=== PATIENT | female | born 1940 | race Caucasian/White ===

== ENCOUNTER → 2016-07-22 | Outpatient (CLI) | payer MEDICARE, MEDICAID ==
[~2016-07-22] MED LIST: AC500T PO; ACHD5005 PO; ASP325TEC PO; ASP81TEC PO; CLPD75T PO; DCS100C PO; ESCT10T PO; ESOM20CA; EZET10TA5 PO; FERR-57 PO; FLC1T PO; GFN600TCR PO; HCA25SU PR; HCTZ12.5T; IBUP200T48 PO; KETO15CR TP; LISI1TAB10 PO; LORA10TA7 PO; LSNP20T PO; MECL25TA56 PO; METO25TA PO; MOM10U; MTC5T PO; NAPR220T66 PO; OMEG1CAP51 PO; PGLT30T PO; POLY17PO23 PO; QTP25T; RNT150T PO; SIME80TA6 PO; SIMETHICONE PO; SIMV40TA4 PO; SMT80CT PO; TPR25T PO; TRZS2T PO; WHEA1POW PO; ZPR20C PO; [UNRECOGNIZED DRUG - CODE] PO
--- NOTE | 2016-07-25 13:16 | Diagnostic Imaging Report ---
Bilateral screening mammogram. The current study was also evaluated with a Computer Aided Detection (CAD) system. INDICATION: Screening. No current complaints stated on the questionnaire. COMPARISON: 07/14/15. FINDINGS: The breasts are composed of scattered fibroglandular densities. There are scattered benign-appearing calcifications. Allowing for technique and positional differences, no suspicious change is seen. IMPRESSION: No significant change. ACR BI-RADS Category 2: Benign findings. Result letter will be mailed to the patient. Note: At least 10% of breast cancer is not imaged by mammography. Dictated by: Dictated on workstation # [id number]
== END ==
LOC: RAD 09:55
PROVIDERS: ATTEND Internal Medicine
DX: Z12.31 Encounter for screening mammogram for malignant neoplasm of breast (principal)
CPT/HCPCS: 77067

== ENCOUNTER → 2017-07-11 | Outpatient (CLI) | payer MEDICARE, MEDICAID ==
--- NOTE | 2017-07-11 12:09 | Diagnostic Imaging Report ---
INDICATION: Routine screening. Comparison is made with prior exam from 07/22/2016 and 07/14/2015. The current study was also evaluated with a Computer Aided Detection (CAD) system. FINDINGS: Mild parenchymal density is stable. No dominant mass or malignant-appearing microcalcifications are seen. There is a tiny well-defined nodule in the far posterior left breast on the MLO view, most consistent with an intramammary lymph node. Benign-appearing calcifications are noted in both breasts. The axillae are unremarkable. IMPRESSION: No mammographic features suspicious for malignancy are identified. ACR BI-RADS Category 2: Benign findings. Result letter will be mailed to the patient. Note: At least 10% of breast cancer is not imaged by mammography. Dictated by: Dictated on workstation # [id number]
== END ==
LOC: RAD 10:28
PROVIDERS: ATTEND Nurse Practitioner
DX: Z12.31 Encounter for screening mammogram for malignant neoplasm of breast (principal)
CPT/HCPCS: 77067

== ENCOUNTER → 2018-07-12 | Outpatient (CLI) | payer MEDICARE, MEDICAID ==
--- NOTE | 2018-07-12 21:36 | Diagnostic Imaging Report ---
INDICATION: Routine screening. Comparison is made with prior mammogram from 07/11/2017 and 07/22/2016. 2-D and 3-D bilateral screening mammography was performed with CAD. The current study was also evaluated with a Computer Aided Detection (CAD) system. FINDINGS: Scattered fibroglandular densities are identified bilaterally. There are benign calcifications within both breasts, stable. No mass or malignant-appearing microcalcifications are seen. The axillae are unremarkable. IMPRESSION: No mammographic features suspicious for malignancy are identified. ACR BI-RADS Category 2: Benign findings. Result letter will be mailed to the patient. Note: At least 10% of breast cancer is not imaged by mammography. Dictated by: Dictated on workstation # [id number]
== END ==
LOC: RAD 10:10
PROVIDERS: ATTEND Internal Medicine
DX: Z12.31 Encounter for screening mammogram for malignant neoplasm of breast (principal)
CPT/HCPCS: 77067

== ENCOUNTER 2018-07-28 06:50 | Emergency (ER) | payer MEDICARE, MEDICAID ==
[~2018-07-28] VITALS: Ht 165.1 cm; Wt 104.3 kg
--- NOTE | 2018-07-28 07:38 | ED Fall/Injury ---
General Chief Complaint: Trauma-Non Activation Stated Complaint: FALL Nursing Triage Note: Pt to ED via EMS from [facility], [place]. Pt reports having diarrhea and nausea this morning. Pt reports getting off the toilet and falling attempting to get into the shower. Pt reports falling face first into the shower. Pt has bilateral knee bruising and a hematoma to the L eye. Pt c/o knee pain. Pt denies any nausea at this time. Source: patient, EMS Exam Limitations: no limitations History of Present Illness Date Seen by Provider: Jul 28, 2018 Time Seen by Provider: 07:32 Initial Comments 77-year-old white female presents after she inadvertently fell in shower this morning. The patient had preceding nausea and vomiting. She denied associated syncope. She had no lateralizing or localizing neurologic complaints. Patient denied hematemesis or black or tarry stools. Patient has had no associated fever or chill. The patient's nausea vomiting and diarrhea have spontaneously resolved after presentation to the emergency department. When the patient fell the shower she struck her face and both knees. She denied trauma to the chest abdomen or pelvis. Patient is also complaining of nonradiating neck pain. Patient has had bilateral knee replacements. Allergies and Home Medications Allergies Coded Allergies: Codeine (Verified Allergy, Unknown, 04/14/08) Morphine (Verified Allergy, Unknown, 04/14/08) Sulfa (Sulfonamide Antibiotics) (Verified Allergy, Unknown, 04/14/08) Home Medications Acetaminophen 500 Mg Tablet, 1,000 MG PO QID PRN, (Reported) PRN PAIN TAKES 2 TABS EVERY 6 HOURS PRN Aspirin 81 Mg Tabec, 81 MG PO DAILY, (Reported) Docusate Sodium 100 Mg Capsule, 100-200 MG PO BID, (Reported) 1 OR 2 CAPS TWICE DAILY Escitalopram Oxalate 10 Mg Tablet, 10 MG PO DAILY, (Reported) Ezetimibe 10 Mg Tablet, 10 MG PO HS, (Reported) Ferrous Sulfate 325 Mg Tablet, 325 MG PO DAILY, (Reported) Folic Acid 1 Mg Tab, 2 MG PO DAILY, (Reported) TAKES 2 OF THE 1MG TABLETS DAILY Guaifenesin 600 Mg Tab, 600 MG PO BID PRN, (Reported) PRN COUGH AND/ OR CONGESTION Hctz/Lisinopril 1 Tab Tablet, 20-25 MG PO DAILY, (Reported) Hydrocortisone Acetate 1 Ea Supp, 25 MG CA Q8H PRN, (Reported) PRN RECTAL BLEEDING FROM HEMORRHOIDS Ibuprofen 200 Mg Tablet, 800 MG PO Q8H PRN for PAIN, (Reported) Loratadine 10 Mg Tablet, 10 MG PO DAILY, (Reported) Metoprolol Succinate 25 Mg Tab.sr.24h, 25 MG PO DAILY, (Reported) [place]-3 Fatty Acids/Fish Oil 1 Each Capsule, 3,000 MG PO DAILY, (Reported) TAKES 3 CAPS ONCE DAILY Polyethylene Glycol 17 Gm Pack, 17 GM PO DAILY PRN, (Reported) PRN CONSTIPATION Ranitidine Hcl 150 Mg Tablet, 150 MG PO BID, (Reported) Simethicone 80 Mg Tab.chew, 40 MG PO BID, (Reported) Simvastatin 40 Mg Tablet, 40 MG PO DAILY, (Reported) Topiramate 25 Mg Tab, 25 MG PO BID, (Reported) Patient Home Medication List Home Medication List Reviewed: Yes Review of Systems Review of Systems Constitutional: No chills, No fever; malaise, weakness Eyes: Denies Blurred Vision Ears, Nose, Mouth, Throat: denies ear pain Respiratory: No cough Cardiovascular: No chest pain, No palpitations Gastrointestinal: No abdominal pain; diarrhea, nausea, vomiting Genitourinary: No dysuria, No frequency : No Musculoskeletal: see HPI Skin: other (ecchymosis to the face and both knees.) Psychiatric/Neurological: No Symptoms Reported Past Tjlqaiu-Ojbsov-Jenams Hx Past Med/Social Hx: Reviewed Nursing Past Med/Soc Hx Patient Social History Alcohol Use: Denies Use Recreational Drug Use: No 2nd Hand Smoke Exposure: No Recent Foreign Travel: No Contact w/Someone Who Travel: No Recent Infectious Disease Expo: No Recent Hopitalizations: Yes (4 YEARS AGO FOR BLEEDING HEMORRHOIDS) Physical Abuse: No Sexual Abuse: No Immunizations Up To Date Date of Pneumonia Vaccine: Sep 17, 2014 Past Medical History Surgeries: Yes (HYSTERECTOMY, T&A, APPENDECTOMY, GALL BLADDER, KNEE REPLACEMENT X2) Respiratory: No 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 SORIANO, WILL SEE AGAIN IN 6MO) Physical Exam Vital Signs Vital Signs - First Documented 07/28/18 06:50 Temp 97.9 Pulse 71 Resp 17 B/P (MAP) 138/109 (119) Pulse Ox 95 O2 Delivery Room Air Capillary Refill : Less Than 3 Seconds Height, Weight, BMI Height: 5'5.00" Weight: 230lbs. oz. 104.936370bc; BMI Method:Stated General Appearance: WD/WN, obese HEENT: other (there is periorbital bruising on examination the patient's face. There is no active epistaxis. There is no oral injury noted. 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, no motor/sensory deficits, alert, normal mood/affect, oriented x 3 Skin: warm/dry, ecchymosis (over the face and knees.) Progress/Results/Core Measures Results/Orders Lab Results Laboratory Tests Test 07/28/18 07:51 07/28/18 09:20 Range/Units White Blood Count 8.4 4.3-11.0 10^3/uL Red Blood Count 3.87 L 4.35-5.85 10^6/uL Hemoglobin 12.2 11.5-16.0 G/DL Hematocrit 39 35-52 % Mean Corpuscular Volume 101 H 80-99 FL Mean Corpuscular Hemoglobin 32 25-34 PG Mean Corpuscular Hemoglobin Concent 31 L 32-36 G/DL Red Cell Distribution Width 12.5 10.0-14.5 % Platelet Count 142 130-400 10^3/uL Mean Platelet Volume 10.8 H 7.4-10.4 FL Neutrophils (%) (Auto) 91 H 42-75 % Lymphocytes (%) (Auto) 4 L 12-44 % Monocytes (%) (Auto) 5 0-12 % Eosinophils (%) (Auto) 0 0-10 % Basophils (%) (Auto) 0 0-10 % Neutrophils # (Auto) 7.7 1.8-7.8 X 10^3 Lymphocytes # (Auto) 0.4 L 1.0-4.0 X 10^3 Monocytes # (Auto) 0.4 0.0-1.0 X 10^3 Eosinophils # (Auto) 0.0 0.0-0.3 10^3/uL Basophils # (Auto) 0.0 0.0-0.1 10^3/uL Neutrophils % (Manual) 92 % Lymphocytes % (Manual) 5 % Monocytes % (Manual) 2 % Eosinophils % (Manual) 1 % Macrocytosis SLIGHT Blood Morphology Comment NORMAL Sodium Level 141 135-145 MMOL/L Potassium Level 4.6 3.6-5.0 MMOL/L Chloride Level 110 H 98-107 MMOL/L Carbon Dioxide Level 21 21-32 MMOL/L Anion Gap 10 5-14 MMOL/L Blood Urea Nitrogen 32 H 7-18 MG/DL Creatinine 1.11 0.60-1.30 MG/DL Estimat Glomerular Filtration Rate 48 BUN/Creatinine Ratio 29 Glucose Level 169 H 70-105 MG/DL Calcium Level 8.9 8.5-10.1 MG/DL Corrected Calcium 9.1 8.5-10.1 MG/DL Total Bilirubin 0.5 0.1-1.0 MG/DL Aspartate Amino Transf (AST/SGOT) 19 5-34 U/L Alanine Aminotransferase (ALT/SGPT) 11 0-55 U/L Alkaline Phosphatase 70 40-136 U/L Total Protein 6.6 6.4-8.2 GM/DL Albumin 3.7 3.2-4.5 GM/DL Urine Color YELLOW Urine Clarity CLEAR Urine pH 6 5-9 Urine Specific [place] 1.015 L 1.016-1.022 Urine Protein NEGATIVE NEGATIVE Urine Glucose (UA) NEGATIVE NEGATIVE Urine Ketones NEGATIVE NEGATIVE Urine Nitrite NEGATIVE NEGATIVE Urine Bilirubin NEGATIVE NEGATIVE Urine Urobilinogen NORMAL NORMAL MG/DL Urine Leukocyte Esterase NEGATIVE NEGATIVE Urine RBC (Auto) 1+ H NEGATIVE Urine RBC 0-2 /HPF Urine WBC NONE /HPF Urine Crystals NONE /LPF Urine Bacteria NEGATIVE /HPF Urine Casts NONE /LPF Urine Mucus NEGATIVE /LPF Urine Culture Indicated NO My Orders Orders - SUNITA COOK MD Cbc With Automated Diff (07/28/18 07:02) Comprehensive Metabolic Panel (07/28/18 07:02) Urinalysis (07/28/18 07:02) Urine Culture (07/28/18 07:02) Protime With Inr (07/28/18 07:02) Partial Thromboplastin Time (07/28/18 07:02) Chest 1 View, Ap/Pa Only (07/28/18 07:02) Saline Lock/Iv-Start (07/28/18 07:02) Ekg Tracing (07/28/18 07:02) Vital Signs Adult Sepsis Patie Q15M (07/28/18 07:02) O2 (07/28/18 07:02) Knee, Bilateral, W/[place] 4v. (07/28/18 07:30) Ct Head/Face/Cervical Wo (07/28/18 07:52) Manual Differential (07/28/18 07:51) Dipht,Pertuss(Acell),Tet Adult (Boostrix (07/28/18 09:45) Vital Signs/I&O 07/28/18 06:50 Temp 97.9 Pulse 71 Resp 17 B/P (MAP) 138/109 (119) Pulse Ox 95 O2 Delivery Room Air Blood Pressure Mean: 119 Progress Progress Note : Time: 09:[address] study demonstrated a nasal fracture. 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 Degenerative changes were noted in the cervical spine but no evidence of fracture or dislocation. Radiographically evaluation of the chest demonstrated atelectasis but no evidence of acute infiltrate. X-ray of both knees failed to demonstrate evidence of fracture or dislocation. I discussed findings with the patient. I gave her a referral for ENT. She did not want any medicines other than Tylenol for her pain. I will last the assisted personnel to watch patient closely to avoid a further fall. I discussed the patient's findings with her family who is in agreement to allow the patient to return to her independent living at [facility]. We walked the patient in the emergency department employee in her walker that she uses. She was able to weight-bear without difficulty. Departure Impression Primary Impression: Fall Qualified Codes: W19.XXXA - Unspecified fall, initial encounter Additional Impressions: Nasal fracture Qualified Codes: S02.2XXA - Fracture of nasal bones, initial encounter for closed fracture Closed head injury Qualified Codes: S09.90XA - Unspecified injury of head, initial encounter Contusion of knee, left Qualified Codes: S80.02XA - Contusion of left knee, initial encounter Contusion of knee, right Qualified Codes: S80.01XA - Contusion of right knee, initial encounter Disposition: HOME, SELF-CARE Condition: Improved Departure-Patient Inst. Decision time for Depature: 09:43 Referrals: ROGELIO BRADLEY MD, JOHN D MD (PCP/Family) Primary Care Physician Patient Instructions: Nose Fracture (DC) Add. Discharge Instructions: Follow up with ENT for nasal fracture. Tylenol for pain. Have staff watch closely to avoid another fall. All discharge instructions reviewed with patient and/or family. Voiced understanding. SUNITA COOK MD Jul 28, 2018 07:38
[2018-07-28 08:04] LABS: BASOPHILS % (AUTO) 0 % (0-10); EOSINOPHILS % (AUTO) 0 % (0-10); HEMATOCRIT 39 % (35-52); HEMOGLOBIN 12.2 G/DL (11.5-16.0); LYMPHOCYTES # (AUTO) 0.4 X 10^3 (1.0-4.0); LYMPHOCYTES % (AUTO) 4 % (12-44); MEAN CORPUSCULAR HEMOGLOBIN 32 PG (25-34); MEAN CORPUSCULAR HGB CONC 31 G/DL (32-36); MEAN CORPUSCULAR VOLUME 101 FL (80-99); MEAN PLATELET VOLUME 10.8 FL (7.4-10.4); MONOCYTES # (AUTO) 0.4 X 10^3 (0.0-1.0); MONOCYTES % (AUTO) 5 % (0-12); NEUTROPHILS # (AUTO) 7.7 X 10^3 (1.8-7.8); NEUTROPHILS % (AUTO) 91 % (42-75); PLATELET COUNT 142 10^3/uL (130-400); RED CELL DISTRIBUTION WIDTH 12.5 % (10.0-14.5); WHITE BLOOD COUNT 8.4 10^3/uL (4.3-11.0)
[2018-07-28 08:21] LABS: ALBUMIN 3.7 GM/DL (3.2-4.5); BILIRUBIN,TOTAL 0.5 MG/DL (0.1-1.0); CALCIUM 8.9 MG/DL (8.5-10.1); CREATININE SERUM 1.11 MG/DL (0.60-1.30); POTASSIUM 4.6 MMOL/L (3.6-5.0); TOTAL PROTEIN 6.6 GM/DL (6.4-8.2)
--- NOTE | 2018-07-28 08:53 | Diagnostic Imaging Report ---
Indication: Fall. Time of exam: 8:22 AM Multiple views of the bilateral knees were obtained. Postop changes of bilateral knee arthroplasties are noted. Prosthetic elements appear to be in good position. No fracture or loosening is seen. There is no joint effusion. Impression: No acute abnormality is detected. Dictated by: Dictated on workstation # [id number]
--- NOTE | 2018-07-28 08:53 | Diagnostic Imaging Report ---
INDICATION: Fall. TIME OF EXAM: 08:22 a.m Correlation is made with prior study from 12/31/2014. Heart size is stable. There are some subsegmental atelectasis or scarring in both bases. Mid and upper lung roldan are clear. No effusion or pneumothorax is seen. IMPRESSION: Mild bibasilar subsegmental atelectasis or scarring. Dictated by: Dictated on workstation # [id number]
--- NOTE | 2018-07-28 09:02 | Diagnostic Imaging Report ---
PROCEDURE: CT head, face, and cervical spine without contrast. TECHNIQUE: Multiple contiguous axial images were obtained through the head, neck, and facial bones without the use of intravenous contrast. Sagittal and coronal reformations through the cervical spine and facial bones were also performed. INDICATION: Injury. Head CT compared with prior 04/14/2008. CT HEAD: Mild cerebral cortical atrophy and old ischemic sequelae in the left basal ganglia chronic. No acute intracranial abnormality. There is no hemorrhage or edema. No calvarial fracture deformity. CT FACIAL BONES: Right frontal and preseptal orbital and facial soft tissue swelling is present. There is suspicion for fractures of the right greater than left nasal bones with mild leftward deviation of the distal fragments with some overlying soft tissue swelling. This reflects a change when compared to prior CT head. Correlate for nasal pain. Septum appeared intact with some mild rightward spurring chronic. The gonzalez of the maxillary sinuses are intact. There is no maxillary air-fluid level. Anterior and posterior gonzalez of frontal sinuses are intact. There is no mastoid effusion. The external auditory canals and middle ear cavities clear. Hard palate and pterygoid plates intact, some chronic sclerotic changes to the right mandibular body and ramus present. No mandibular fracture or bony dislocation of the TMJs. CT CERVICAL SPINE: There is a straightening of lordosis without listhesis. There are degenerative changes to the discs, endplates, facets and uncovertebral joints throughout the cervical spine. Some ossification of the spinal laminar ligament at the C3-C4 level. There was no evidence for fracture. No paravertebral hemorrhage. IMPRESSION: CT HEAD: Old left-sided stroke, no intracranial hemorrhage or calvarial fracture. CT FACIAL BONES: Probable bilateral nasal bone fractures with leftward deviation of the distal components, intact septum. No hemo-sinus. No other facial fracture suspected. Preseptal soft tissue swelling with no retrobulbar hematoma. CT CERVICAL SPINE: Degenerative changes without fracture or dislocation. Dictated by: Dictated on workstation # [id number]
[2018-07-28 09:16] LABS: EOSINOPHILS % (MANUAL) 1 %; LYMPHOCYTES % (MANUAL) 5 %; MONOCYTES % (MANUAL) 2 %; NEUTROPHILS % (MANUAL) 92 %; RBC MORPH NORMAL
[2018-07-28 09:33] LABS: BILIRUBIN,URINE NEGATIVE (NEGATIVE); CLARITY,URINE CLEAR; COLOR,URINE YELLOW; GLUCOSE, URINE (UA) NEGATIVE (NEGATIVE); KETONES,URINE NEGATIVE (NEGATIVE); LEUKOCYTE ESTERASE ,URINE NEGATIVE (NEGATIVE); NITRITE,URINE NEGATIVE (NEGATIVE); PH,URINE 6 (5-9); PROTEIN,URINE NEGATIVE (NEGATIVE); UROBILINOGEN,URINE NORMAL (NORMAL)
[2018-07-28 09:40] LABS: BACTERIA,URINE NEGATIVE /HPF; RBC,URINE 0-2 /HPF
[2018-07-28] MEDS ORDERED: TETANUS,DIPTH,PERTUSS P/F (BOOSTRIX) 0.5 ML VIAL IM ONE (09:45)
[2018-07-28 11:04] VITALS: BP 120/68
== END 2018-07-28 11:03 | disposition home or self-care (01) ==
LOC: EDUNIT# 06:50 → ER 06:52
DX: S09.90XA Unspecified injury of head, initial encounter (principal); S02.2XXA Fracture of nasal bones, initial encounter for closed fracture; S80.02XA Contusion of left knee, initial encounter; S80.01XA Contusion of right knee, initial encounter; Z88.5 Allergy status to narcotic agent; Z88.2 Allergy status to sulfonamides; Z79.82 Long term (current) use of aspirin; Z79.51 Long term (current) use of inhaled steroids; Z87.19 Personal history of other diseases of the digestive system; Z90.710 Acquired absence of both cervix and uterus; Z90.49 Acquired absence of other specified parts of digestive tract; W18.30XA Fall on same level, unspecified, initial encounter; Y92.002 Bathroom of unspecified non-institutional (private) residence as the place of occurrence of the external cause
CPT/HCPCS: 36415; 70450; 70486; 71045; 72125; 80053; 81000; 85007; 85027; 87088; 90715; 93005

== ENCOUNTER → 2018-07-31 | Outpatient (CLI) | payer MEDICARE, MEDICAID | LOC: WOUNDCARE 09:23 | PROVIDERS: ATTEND Nurse Practitioner | DX: L89.152 Pressure ulcer of sacral region, stage 2 (principal); E66.01 Morbid (severe) obesity due to excess calories | CPT/HCPCS: 99213 ==

== ENCOUNTER → 2018-08-07 | Outpatient (CLI) | payer MEDICARE, MEDICAID | LOC: WOUNDCARE 09:39 | PROVIDERS: ATTEND Nurse Practitioner | DX: L89.152 Pressure ulcer of sacral region, stage 2 (principal); E66.01 Morbid (severe) obesity due to excess calories | CPT/HCPCS: 11042; 87070; 87075; 87205 ==

== ENCOUNTER → 2018-08-14 | Outpatient (CLI) | payer MEDICARE, MEDICAID | LOC: WOUNDCARE 09:13 | PROVIDERS: ATTEND Nurse Practitioner | DX: L89.152 Pressure ulcer of sacral region, stage 2 (principal); E66.01 Morbid (severe) obesity due to excess calories | CPT/HCPCS: 99212 ==

== ENCOUNTER 2018-08-17 07:27 | Emergency (ER) | payer MEDICARE, MEDICAID ==
[~2018-08-17] VITALS: Ht 167.6 cm; Wt 86.2 kg
--- NOTE | 2018-08-17 07:41 | NUR ---
SEE [facility] MED[facility] SHEETS FOR CURRENT MEDS
--- NOTE | 2018-08-17 07:58 | ED Fall/Injury ---
General Chief Complaint: Trauma-Non Activation Stated Complaint: FALL Source: patient, EMS Exam Limitations: no limitations History of Present Illness Date Seen by Provider: Aug 17, 2018 Time Seen by Provider: 07:37 Initial Comments 77-year-old white female presents [facility] striking her left occiput. There was no loss of consciousness. Patient denies neck pain. She denies paresthesias or weakness in the extremities. The patient has been falling frequently. 3 weeks ago she fell striking her face and sustained a nasal fracture. Patient is not on blood thinners. She denies chest pain, palpitations, or syncope. The patient stated that she slipped off the bed as she was reaching forward for her walker which caused her to hit her left occipital area. Patient has had frequent falls in the last several months. Allergies and Home Medications Allergies Coded Allergies: Codeine (Verified Allergy, Unknown, 04/14/08) Morphine (Verified Allergy, Unknown, 04/14/08) Sulfa (Sulfonamide Antibiotics) (Verified Allergy, Unknown, 04/14/08) Home Medications Acetaminophen 500 Mg Tablet, 1,000 MG PO QID PRN, (Reported) PRN PAIN TAKES 2 TABS EVERY 6 HOURS PRN Aspirin 81 Mg Tabec, 81 MG PO DAILY, (Reported) Docusate Sodium 100 Mg Capsule, 100-200 MG PO BID, (Reported) 1 OR 2 CAPS TWICE DAILY Escitalopram Oxalate 10 Mg Tablet, 10 MG PO DAILY, (Reported) Ezetimibe 10 Mg Tablet, 10 MG PO HS, (Reported) Ferrous Sulfate 325 Mg Tablet, 325 MG PO DAILY, (Reported) Folic Acid 1 Mg Tab, 2 MG PO DAILY, (Reported) TAKES 2 OF THE 1MG TABLETS DAILY Guaifenesin 600 Mg Tab, 600 MG PO BID PRN, (Reported) PRN COUGH AND/ OR CONGESTION Hctz/Lisinopril 1 Tab Tablet, 20-25 MG PO DAILY, (Reported) Hydrocortisone Acetate 1 Ea Supp, 25 MG CA Q8H PRN, (Reported) PRN RECTAL BLEEDING FROM HEMORRHOIDS Ibuprofen 200 Mg Tablet, 800 MG PO Q8H PRN for PAIN, (Reported) Loratadine 10 Mg Tablet, 10 MG PO DAILY, (Reported) Metoprolol Succinate 25 Mg Tab.sr.24h, 25 MG PO DAILY, (Reported) [place]-3 Fatty Acids/Fish Oil 1 Each Capsule, 3,000 MG PO DAILY, (Reported) TAKES 3 CAPS ONCE DAILY Polyethylene Glycol 17 Gm Pack, 17 GM PO DAILY PRN, (Reported) PRN CONSTIPATION Ranitidine Hcl 150 Mg Tablet, 150 MG PO BID, (Reported) Simethicone 80 Mg Tab.chew, 40 MG PO BID, (Reported) Simvastatin 40 Mg Tablet, 40 MG PO DAILY, (Reported) Topiramate 25 Mg Tab, 25 MG PO BID, (Reported) Patient Home Medication List Home Medication List Reviewed: Yes Review of Systems Review of Systems Constitutional: No chills, No fever Eyes: Denies Blurred Vision Ears, Nose, Mouth, Throat: denies ear pain Respiratory: No cough Cardiovascular: No chest pain Gastrointestinal: No abdominal pain, No nausea, No vomiting Genitourinary: no symptoms reported : No Musculoskeletal: no symptoms reported Skin: other (patient sustained an abrasion to the left forearm when she fell this morning. The prison staff cleaned and Steri-Stripped and a area over the dorsum of the midportion of the left forearm. 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 SORIANO, WILL SEE AGAIN IN 6MO) Physical Exam Vital Signs Vital Signs - First Documented 08/17/18 07:27 Temp 97.8 Pulse 66 Resp 18 B/P (MAP) 137/105 (116) Pulse Ox 92 O2 Delivery Room Air O2 Flow Rate 2.00 Capillary Refill : Height, Weight, BMI Height: 5'5.00" Weight: 230lbs. oz. 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 The patient remained awake and alert without any complaints in the emergency department. I reassured the patient. The patient was discharged to the prison with recommendations that she become a fall risk that they watch most closely. I asked that she follow up with her primary care physician on Monday. She was invited to return to the emergency department she had any further problems or questions. Departure Impression Primary Impression: Fall Qualified Codes: W19.XXXA - Unspecified fall, initial encounter Additional Impression: CHI (closed head injury) Qualified Codes: S09.90XA - Unspecified injury of head, initial encounter Disposition: 01 HOME, SELF-CARE Condition: Unchanged Departure-Patient Inst. Decision time for Depature: 09:09 Referrals: GILLIAN CYR MD (PCP/Family) Primary Care Physician Patient Instructions: Minor Head Injury (DC) Add. Discharge Instructions: Return if any problems or questions. Ensure extreme fall precautions are taken. Follow-up with Dr. Cyr. All discharge instructions reviewed with patient and/or family. Voiced understanding. SUNITA COOK MD Aug 17, 2018 07:58
--- NOTE | 2018-08-17 08:01 | Diagnostic Imaging Report ---
PROCEDURE: CT head without contrast. TECHNIQUE: Multiple contiguous axial images were obtained through the brain without the use of intravenous contrast. INDICATION: Fall. History of previous fall 3 weeks ago with nasal bone fracture. Comparison with 07/28/2018. FINDINGS: Diffuse cortical atrophy is again noted. No evidence of intracranial hemorrhage. No mass effect. No extra-axial fluid collection. No evidence of calvarial fracture. Mastoid air cells and paranasal sinuses are well-aerated. IMPRESSION: No acute changes when compared with previous exam. Dictated by: Dictated on workstation # [id number]
[2018-08-17 10:41] VITALS: BP 139/96
--- OUTSIDE RECORDS SUMMARY | 2018-08-19 08:26 | XMS REPORT | Continuity of Care Document ---
Author Author [facility] Organization [facility] Address Unknown Phone Unavailable Allergies Active Description Code Type Severity Reaction Onset Reported/Identified Relationship to Patient Clinical Status Yes codeine [id number] Drug Allergy Unknown N/A 04/14/2008 Yes morphine [id number] Drug Allergy Unknown N/A 04/14/2008 Yes Sulfa (Sulfonamide Antibiotics) [id number] Drug Allergy Unknown N/A 2007 Yes codeine Drug Allergy N/A N/A 04/15/2011 Yes morphine Drug Allergy N/A N/A 04/15/2011 Yes codeine Drug Allergy 04/15/2011 Yes morphine Drug Allergy 04/15/2011 Yes Sulfa (Sulfonamide Antibiotics) Drug Allergy N/A N/A 09/05/2013 Medications There is no data. Problems Date Dx Coded Attending Type Code Diagnosis Diagnosed By 01/30/2008 296.30 MAJOR DEPRESSIVE AFFECTIVE DISORDER RECURRENT EPISODE UNSPECIFIED DEGREE 01/30/2008 316 PF PSYCHIC FACTORS MED COND 01/30/2008 296.30 MAJOR DEPRESSIVE AFFECTIVE DISORDER RECURRENT EPISODE UNSPECIFIED DEGREE 01/30/2008 316 PF PSYCHIC FACTORS MED COND 01/30/2008 296.30 MAJOR DEPRESSIVE AFFECTIVE DISORDER RECURRENT EPISODE UNSPECIFIED DEGREE 01/30/2008 316 PF PSYCHIC FACTORS MED COND 01/30/2008 296.30 MAJOR DEPRESSIVE AFFECTIVE DISORDER RECURRENT EPISODE UNSPECIFIED DEGREE 01/30/2008 316 PF PSYCHIC FACTORS MED COND 01/30/2008 JAMILAH BAEZ DO 296.30 MAJOR DEPRESSIVE AFFECTIVE DISORDER RECURRENT EPISODE UNSPECIFIED DEGREE 01/30/2008 JAMILAH BAEZ DO 316 PF PSYCHIC FACTORS MED COND 01/30/2008 FRANCHESKA SOLORIO APRN 296.30 MAJOR DEPRESSIVE AFFECTIVE DISORDER RECURRENT EPISODE UNSPECIFIED DEGREE 01/30/2008 FRANCHESKA SOLORIO APRN 316 PF PSYCHIC FACTORS MED COND 01/30/2008 FRANCHESKA SOLORIO APRN 296.30 MAJOR DEPRESSIVE AFFECTIVE DISORDER RECURRENT EPISODE UNSPECIFIED DEGREE 01/30/2008 FRANCHESKA SOLORIO APRN 316 PF PSYCHIC FACTORS MED COND 01/30/2008 FRANCHESKA SOLORIO APRN 296.30 MAJOR DEPRESSIVE AFFECTIVE DISORDER RECURRENT EPISODE UNSPECIFIED DEGREE 01/30/2008 FRANCHESKA SOLORIO APRN 316 PF PSYCHIC FACTORS MED COND 01/30/2008 FRANCHESKA SOLORIO APRN 296.30 MAJOR DEPRESSIVE AFFECTIVE DISORDER RECURRENT EPISODE UNSPECIFIED DEGREE 01/30/2008 FRANCHESKA SOLORIO APRN 316 PF PSYCHIC FACTORS MED COND 01/30/2008 JAMEL LONGO M 296.30 MAJOR DEPRESSIVE AFFECTIVE DISORDER RECURRENT EPISODE UNSPECIFIED DEGREE 01/30/2008 PEDRO AYALA, JAMEL M 316 PF PSYCHIC FACTORS MED COND 03/31/2008 300.00 AN ANXIETY UNSPEC 03/31/2008 995.20 UNSPECIFIED ADVERSE EFFECT OF UNSPECIFIED DRUG MEDICINAL AND BIOLOGICAL SUBSTANCE 03/31/2008 300.00 AN ANXIETY UNSPEC 03/31/2008 995.20 UNSPECIFIED ADVERSE EFFECT OF UNSPECIFIED DRUG MEDICINAL AND BIOLOGICAL SUBSTANCE 03/31/2008 300.00 AN ANXIETY UNSPEC 03/31/2008 995.20 UNSPECIFIED ADVERSE EFFECT OF UNSPECIFIED DRUG MEDICINAL AND BIOLOGICAL SUBSTANCE 03/31/2008 300.00 AN ANXIETY UNSPEC 03/31/2008 995.20 UNSPECIFIED ADVERSE EFFECT OF UNSPECIFIED DRUG MEDICINAL AND BIOLOGICAL SUBSTANCE 03/31/2008 JAMILAH BAEZ DO F 300.00 AN ANXIETY UNSPEC 03/31/2008 JAMILAH BAEZ DO F 995.20 UNSPECIFIED ADVERSE EFFECT OF UNSPECIFIED DRUG MEDICINAL AND BIOLOGICAL SUBSTANCE 03/31/2008 FRANCHESKA SOLORIO APRN 300.00 AN ANXIETY UNSPEC 03/31/2008 FRANCHESKA SOLORIO APRN 995.20 UNSPECIFIED ADVERSE EFFECT OF UNSPECIFIED DRUG MEDICINAL AND BIOLOGICAL SUBSTANCE 03/31/2008 FRANCHESKA SOLORIO APRN 300.00 AN ANXIETY UNSPEC 03/31/2008 FRANCHESKA SOLORIO APRN 995.20 UNSPECIFIED ADVERSE EFFECT OF UNSPECIFIED DRUG MEDICINAL AND BIOLOGICAL SUBSTANCE 03/31/2008 FRANCHESKA SOLORIO APRN 300.00 AN ANXIETY UNSPEC 03/31/2008 FRANCHESKA SOLORIO APRN 995.20 UNSPECIFIED ADVERSE EFFECT OF UNSPECIFIED DRUG MEDICINAL AND BIOLOGICAL SUBSTANCE 03/31/2008 FRANCHESKA SOLORIO APRN 300.00 AN ANXIETY UNSPEC 03/31/2008 FRANCHESKA SOLORIO APRN 995.20 UNSPECIFIED ADVERSE EFFECT OF UNSPECIFIED DRUG MEDICINAL AND BIOLOGICAL SUBSTANCE 03/31/2008 JAMEL LONGO 300.00 AN ANXIETY UNSPEC 03/31/2008 JAMEL LONGO 995.20 UNSPECIFIED ADVERSE EFFECT OF UNSPECIFIED DRUG MEDICINAL AND BIOLOGICAL SUBSTANCE 07/21/2008 E939.9 UNSPECIFIED PSYCHOTROPIC AGENT CAUSING ADVERSE EFFECTS IN THERAPEUTIC USE 07/21/2008 E939.9 UNSPECIFIED PSYCHOTROPIC AGENT CAUSING ADVERSE EFFECTS IN THERAPEUTIC USE 07/21/2008 E939.9 UNSPECIFIED PSYCHOTROPIC AGENT CAUSING ADVERSE EFFECTS IN THERAPEUTIC USE 07/21/2008 E939.9 UNSPECIFIED PSYCHOTROPIC AGENT CAUSING ADVERSE EFFECTS IN THERAPEUTIC USE 07/21/2008 JAMILAH BAEZ DO E939.9 UNSPECIFIED PSYCHOTROPIC AGENT CAUSING ADVERSE EFFECTS IN THERAPEUTIC USE 07/21/2008 LYNDSEY HAMPTON FRANCHESKA LOGAN E939.9 UNSPECIFIED PSYCHOTROPIC AGENT CAUSING ADVERSE EFFECTS IN THERAPEUTIC USE 07/21/2008 LYNDSEY HAMPTON FRANCHESKA LOGAN E939.9 UNSPECIFIED PSYCHOTROPIC AGENT CAUSING ADVERSE EFFECTS IN THERAPEUTIC USE 07/21/2008 SOLORIO BERTA FRANCHESKA LOGAN E939.9 UNSPECIFIED PSYCHOTROPIC AGENT CAUSING ADVERSE EFFECTS IN THERAPEUTIC USE 07/21/2008 SOLORIO [employer] LOAN COLLECTION OFFICER, FRANCHESKA LOGAN E939.9 UNSPECIFIED PSYCHOTROPIC AGENT CAUSING ADVERSE EFFECTS IN THERAPEUTIC USE 07/21/2008 JAMEL LONGO E939.9 UNSPECIFIED PSYCHOTROPIC AGENT CAUSING ADVERSE EFFECTS IN THERAPEUTIC USE 03/03/2009 NODX NO DIAGNOSIS 03/03/2009 NODX NO DIAGNOSIS 03/03/2009 NODX NO DIAGNOSIS 03/03/2009 NODX NO DIAGNOSIS 03/03/2009 JAMILAH BAEZ DO NODX NO DIAGNOSIS 03/03/2009 SOLORIO [employer]LE[employer] OFFICER, FRANCHESKA LOGAN NODX NO DIAGNOSIS 03/03/2009 LYNDSEY HAMPTON FRANCHESKA LOGAN NODX NO DIAGNOSIS 03/03/2009 SOLORIO BERTA FRANCHESKA LOGAN NODX NO DIAGNOSIS 03/03/2009 SOLORIO BERTA FRANCHESKA LOGAN NODX NO DIAGNOSIS 03/03/2009 JAMEL LONGO NODX NO DIAGNOSIS 04/23/2009 296.35 MO DEPRESSIVE RECURRENT IN PART OR UNSPECIFIED REMISSION 04/23/2009 296.35 MO DEPRESSIVE RECURRENT IN PART OR UNSPECIFIED REMISSION 04/23/2009 296.35 MO DEPRESSIVE RECURRENT IN PART OR UNSPECIFIED REMISSION 04/23/2009 296.35 MO DEPRESSIVE RECURRENT IN PART OR UNSPECIFIED REMISSION 04/23/2009 JAMILAH BAEZ DO 296.35 MO DEPRESSIVE RECURRENT IN PART OR UNSPECIFIED REMISSION 04/23/2009 SOLORIO [employer]LE[employer] OFFICER, FRANCHESKA DESMOND 296.35 MO DEPRESSIVE RECURRENT IN PART OR UNSPECIFIED REMISSION 04/23/2009 SOLORIO [employer]LECTION OFFICER, FRANCHESKA DESMOND 296.35 MO DEPRESSIVE RECURRENT IN PART OR UNSPECIFIED REMISSION 04/23/2009 SOLORIO [employer]LECTION OFFICER, FRANCHESKA DESMOND 296.35 MO DEPRESSIVE RECURRENT IN PART OR UNSPECIFIED REMISSION 04/23/2009 SOLORIO [employer]LECTION OFFICER, FRANCHESKA DESMOND 296.35 MO DEPRESSIVE RECURRENT IN PART OR UNSPECIFIED REMISSION 04/23/2009 JAMEL LONGO M 296.35 MO DEPRESSIVE RECURRENT IN PART OR UNSPECIFIED REMISSION 06/30/2009 296.32 MO DEPRESSIVE RECURRENT MODERATE 06/30/2009 296.32 MO DEPRESSIVE RECURRENT MODERATE 06/30/2009 296.32 MO DEPRESSIVE RECURRENT MODERATE 06/30/2009 296.32 MO DEPRESSIVE RECURRENT MODERATE 06/30/2009 JAMILAH BAEZ DO 296.32 MO DEPRESSIVE RECURRENT MODERATE 06/30/2009 SOLORIO [employer]LE[employer] OFFICER, FRANCHESKA DESMOND 296.32 MO DEPRESSIVE RECURRENT MODERATE 06/30/2009 SOLORIO [employer]LE[employer] OFFICER, FRANCHESKA DESMOND 296.32 MO DEPRESSIVE RECURRENT MODERATE 06/30/2009 SOLORIO [employer]LE[employer] OFFICER, FRANCHESKA DESMOND 296.32 MO DEPRESSIVE RECURRENT MODERATE 06/30/2009 SOLORIO [employer]LE[employer] OFFICER, FRANCHESKA DESMOND 296.32 MO DEPRESSIVE RECURRENT MODERATE 06/30/2009 JAMEL LONGO M 296.32 MO DEPRESSIVE RECURRENT MODERATE 09/01/2010 V58.69 LONG-TERM ( CURRENT) USE OF OTHER MEDICATIONS 09/01/2010 V58.69 LONG-TERM ( CURRENT) USE OF OTHER MEDICATIONS 09/01/2010 V58.69 LONG-TERM ( CURRENT) USE OF OTHER MEDICATIONS 09/01/2010 V58.69 LONG-TERM ( CURRENT) USE OF OTHER MEDICATIONS 09/01/2010 JAMILAH BAEZ DO V58.69 LONG-TERM (CURRENT) USE OF OTHER MEDICATIONS 09/01/2010 LYNDSEY HAMPTON FRANCHESKA DESMOND V58.69 LONG-TERM (CURRENT) USE OF OTHER MEDICATIONS 09/01/2010 FRANCHESKA SOLORIO APRN V58.69 LONG-TERM (CURRENT) USE OF OTHER MEDICATIONS 09/01/2010 FRANCHESKA SOLORIO APRN V58.69 LONG-TERM (CURRENT) USE OF OTHER MEDICATIONS 09/01/2010 FRANCHESKA SOLORIO APRN V58.69 LONG-TERM (CURRENT) USE OF OTHER MEDICATIONS 09/01/2010 JAMEL LONGO V58.69 LONG-TERM (CURRENT) USE OF OTHER MEDICATIONS 02/15/2011 Ot 285.9 ANEMIA NOS 08/16/2011 Ot 284.19 OTHER PANCYTOPENIA 08/16/2011 Ot 285.9 ANEMIA NOS 10/20/2011 Ot 250.00 DIAB SHERMAN WO COMPL, TYPE II OR UNSPEC TY 10/20/2011 Ot 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 10/20/2011 Ot 272.4 HYPERLIPIDEMIA NEC/NOS 10/20/2011 Ot 278.01 MORBID OBESITY 10/20/2011 Ot 284.19 OTHER PANCYTOPENIA 10/20/2011 Ot 285.9 ANEMIA NOS 10/20/2011 Ot 403.90 HYPTNSV CHR KID DIS, UNSPEC, W CHR KD ST 10/20/2011 Ot 414.01 CORONARY ATHEROSCLEROSIS OF [place] CORON 10/20/2011 Ot 433.10 CAROTID ARTERY OCCLUSION W O CEREBRAL IN 10/20/2011 Ot 585.3 CHRONIC KIDNEY DISEASE, STAGE III (MODER 10/20/2011 Ot 786.09 RESPIRATORY ABNORM NEC 10/20/2011 Ot 794.30 ABN CARDIOVASC STUDY NOS 10/20/2011 Ot V12.54 PERSONAL HX OF TIA, CEREBRAL INFARCTION 10/20/2011 Ot V58.63 LONG-TERM( CURRENT)USE OF ANTIPLATELET/AN 10/20/2011 Ot V58.66 LONG-TERM ( CURRENT) USE OF ASPIRIN 10/20/2011 Ot V58.69 OTH MED,LT, CURRENT USE 10/20/2011 Ot V85.43 BODY MASS INDEX 50.0-59.9, ADULT 11/23/2011 Ot 413.9 ANGINA PECTORIS NEC/NOS 11/23/2011 Ot V57.89 REHABILITATION PROC NEC 12/15/2011 298.9 P PSYCHOSIS NOS 12/15/2011 298.9 P PSYCHOSIS NOS 12/15/2011 298.9 P PSYCHOSIS NOS 12/15/2011 298.9 P PSYCHOSIS NOS 12/15/2011 JAMILAH BAEZ DO 298.9 P PSYCHOSIS NOS 12/15/2011 FRANCHESKA SOLORIO APRN 298.9 P PSYCHOSIS NOS 12/15/2011 FRANCHESKA SOLORIO APRN 298.9 P PSYCHOSIS NOS 12/15/2011 FRANCHESKA SOLORIO APRN 298.9 P PSYCHOSIS NOS 12/15/2011 FRANCHESKA SOLORIO APRN 298.9 P PSYCHOSIS NOS 12/15/2011 JAMEL LONGO 298.9 P PSYCHOSIS NOS 01/08/2012 Ot 284.19 OTHER PANCYTOPENIA 01/08/2012 Ot 285.9 ANEMIA NOS 03/22/2012 Ot 250.00 DIAB SHERMAN WO COMPL, TYPE II OR UNSPEC TY 03/22/2012 Ot 272.4 HYPERLIPIDEMIA NEC/NOS 03/22/2012 Ot 397.0 TRICUSPID VALVE DISEASE 03/22/2012 Ot 401.9 HYPERTENSION NOS 03/22/2012 Ot 414.01 CORONARY ATHEROSCLEROSIS OF [place]AB[place] CORON 03/22/2012 Ot 416.8 CHR PULMON HEART DIS NEC 03/22/2012 Ot 424.0 MITRAL VALVE DISORDER 03/22/2012 Ot 436 CVA 03/22/2012 Ot 745.5 SECUNDUM ATRIAL SEPT DEF 03/22/2012 Ot V58.63 LONG-TERM( CURRENT)USE OF ANTIPLATELET/AN 03/22/2012 Ot V58.66 LONG-TERM ( CURRENT) USE OF ASPIRIN 03/22/2012 Ot V58.69 OTH MED,LT, CURRENT USE 07/08/2012 Ot 284.19 OTHER PANCYTOPENIA 07/08/2012 Ot 285.9 ANEMIA NOS 11/28/2012 NOLA KO MD Ot 173.31 BASAL CELL CARCINOMA OF SKIN OF OT UN 11/28/2012 NOLA KO MD Ot 250.00 DIAB SHERMAN WO COMPL, TYPE II OR UNSPEC TY 11/28/2012 NOLA KO MD Ot 272.4 HYPERLIPIDEMIA NEC/NOS 11/28/2012 NOLA KO MD Ot 414.00 CORON ATHEROSCLER NOS TYPE VESSEL, NATIV 11/28/2012 NOLA KO MD Ot 433.10 CAROTID ARTERY OCCLUSION W O CEREBRAL IN 11/28/2012 NOLA KO MD Ot 585.3 CHRONIC KIDNEY DISEASE, STAGE III (MODER 12/14/2012 NOLA KO MD Ot 173.31 BASAL CELL CARCINOMA OF SKIN OF OT UN 12/14/2012 NOLA KO MD Ot V58.69 OT MED,LT,CURRENT USE 01/06/2013 FRANCISCO SORIANO N Ot 284.19 OTHER PANCYTOPENIA 01/06/2013 FRANCISCO SORIANO N Ot 285.9 ANEMIA NOS 07/24/2013 CHRISTIEFRANCISCO CUMMINS N Ot 284.19 OTHER PANCYTOPENIA 07/24/2013 CHRISTIEFRANCISCO N Ot 285.9 ANEMIA NOS 08/15/2014 PEDRO AYALA, JAMEL M 296.34 MO DEPRESSIVE RECURRENT SEVERE WITH PSYCHOTIC BEHAVIOR 09/11/2014 Ot 270.4 09/11/2014 Ot 401.9 09/11/2014 Ot 433.10 09/11/2014 Ot 434.91 09/11/2014 Ot 270.4 09/11/2014 Ot 401.9 09/11/2014 Ot 433.10 09/11/2014 Ot 434.91 12/31/2014 ALEXANDRIA CAN MD Ot 250.00 DIAB SHERMAN WO COMPL, TYPE II OR UNSPEC TY 12/31/2014 ALEXANDRIA CAN MD Ot 272.4 HYPERLIPIDEMIA NEC/NOS 12/31/2014 ALEXANDRIA CAN MD Ot 278.01 MORBID OBESITY 12/31/2014 ALEXANDRIA CAN MD Ot 403.90 HYPTNSV CHR KID DIS, UNSPEC, W CHR KD ST 12/31/2014 ALEXANDRIA CAN MD Ot 414.01 CORONARY ATHEROSCLEROSIS OF [place]AB[place] CORON 12/31/2014 ALEXANDRIA CAN MD Ot 416.8 [facility] PULMON HEART DIS NEC 12/31/2014 ALEXANDRIA CAN MD Ot 433.10 CAROTID ARTERY OCCLUSION W O CEREBRAL IN 12/31/2014 ALEXANDRIA CAN MD Ot 585.3 CHRONIC KIDNEY DISEASE, STAGE III (MODER 12/31/2014 ALEXANDRIA CAN MD Ot 745.5 SECUNDUM ATRIAL SEPT DEF 12/31/2014 ALEXANDRIA CAN MD Ot 794.30 ABN CARDIOVASC STUDY NOS 12/31/2014 ALEXANDRIA CAN MD Ot V12.54 PERSONAL HX OF TIA, CEREBRAL INFARCTION 12/31/2014 ALEXANDRIA CAN MD Ot V58.69 OTH MED,LT,CURRENT USE 12/31/2014 ALEXANDRIA CAN MD Ot V85.41 BODY MASS INDEX 40.0-44.9, ADULT 01/01/2015 ALEXANDRIA CAN MD Ot 250.00 01/01/2015 ALEXANDRIA CAN MD Ot 270.4 01/01/2015 JUAN JOSÉ PENNINGTON, ALEXANDRIA Rodriguez Ot 401.9 01/01/2015 JUAN JOSÉ PENNINGTON, ALEXANDRIA Rodriguez Ot 433.10 01/01/2015 JUAN JOSÉ PENNINGTON, ALEXANDRIA Rodriguez Ot 434.91 01/07/2015 JUAN JOSÉ PENNINGTON, ALEXANDRIA Rodriguez Ot 250.00 01/07/2015 JUAN JOSÉ PENNINGTON, ALEXANDRIA Rodriguez Ot 270.4 01/07/2015 JUAN JOSÉ PENNINGTON, ALEXANDRIA Rodriguez Ot 401.9 01/07/2015 JUAN JOSÉ PENNINGTON, ALEXANDRIA Rodriguez Ot 433.10 01/07/2015 JUNA JOSÉ PENNINGTON, ALEXANDRIA Rodriguez Ot 434.91 07/14/2015 Ot 285.9 07/14/2015 Ot 611.72 07/14/2015 Ot V76.12 07/14/2015 Ot 793.80 07/14/2015 Ot 455.0 07/14/2015 Ot 569.3 07/14/2015 Ot 401.9 07/14/2015 Ot 786.09 07/14/2015 Ot V12.54 07/14/2015 Ot 397.0 07/14/2015 Ot 401.9 07/14/2015 Ot 424.0 07/14/2015 Ot 429.3 07/14/2015 Ot 786.09 07/14/2015 Ot V12.54 07/14/2015 Ot 272.4 07/14/2015 Ot 401.9 07/14/2015 Ot 433.10 07/14/2015 Ot 786.09 07/14/2015 Ot 794.39 07/14/2015 Ot V72.63 07/14/2015 Ot V72.81 07/14/2015 Ot 959.3 07/14/2015 Ot 959.4 07/14/2015 Ot E000.8 07/14/2015 Ot E888.9 07/14/2015 Ot 397.0 07/14/2015 Ot 401.9 07/14/2015 Ot 416.8 07/14/2015 Ot 424.0 07/14/2015 Ot 429.3 07/14/2015 Ot 793.2 07/14/2015 [employer] Ot 272.4 07/14/2015 [employer] Ot 401.9 07/14/2015 [employer] Ot 414.00 07/14/2015 MAIKEL PENNINGTON, NOLA S Ot 709.9 07/14/2015 MAIKEL PENNINGTON, NOLA S Ot V72.63 07/14/2015 MAIKEL PENNINGTON, NOLA S Ot V74.8 07/14/2015 MAIKEL PENNINGTON, NOLA S Ot 172.3 07/14/2015 MAIKEL PENNINGTON, NOLA S Ot V72.84 07/14/2015 TRINY PENNINGTON, GILLIAN Llamas Ot V76.12 07/14/2015 Ot 284.19 07/14/2015 Ot 285.9 07/14/2015 TRINY PENNINGTON, GILLIAN Llamas Ot V76.12 07/14/2015 Ot 270.4 07/14/2015 Ot 401.9 07/14/2015 Ot 433.10 07/14/2015 Ot 434.91 07/14/2015 JUAN JOSÉ PENNINGTON, ALEXANDRIA Rodriguez Ot 250.00 07/14/2015 JUAN JOSÉ PENNINGTON, ALEXANDRIA Rodriguez Ot 270.4 07/14/2015 JUAN JOSÉ PENNINGTON, ALEXANDRIA Rodriguez Ot 401.9 07/14/2015 JUAN JOSÉ PENNINGTON, ALEXANDRIA Rodriguez Ot 433.10 07/14/2015 JUAN JOSÉ PENNINGTON, ALEXANDRIA Rodriguez Ot 434.91 07/14/2015 JUAN JOSÉ PENNINGTON, ALEXANDRIA Rodriguez Ot E72.19 07/14/2015 JUAN JOSÉ PENNINGTON, ALEXANDRIA Rodriguez Ot I10 07/14/2015 ALEXANDRIA CAN MD Ot I25.10 07/14/2015 ALEXANDRIA CAN MD Ot I65.23 07/21/2015 ALEXANDRIA CAN MD Ot E72.19 07/21/2015 JUAN JOSÉ PENNINGTON, ALEXANDRIA Rodriguez Ot I10 07/21/2015 ALEXANDRIA CAN MD Ot I25.10 07/21/2015 ALEXANDRIA CAN MD Ot I65.23 07/24/2015 ALEXANDRIA CAN MD Ot E72.19 07/24/2015 JUAN JOSÉ PENNINGTON, ALEXANDRIA Rodriguez Ot I10 07/24/2015 JUAN JOSÉ PENNINGTON, ALEXANDRIA Rodriguez Ot I25.10 07/24/2015 ALEXANDRIA CAN MD Ot I65.23 08/05/2015 GILLIAN AGOSTO MD Ot Z12.31 08/11/2015 GILLIAN AGOSTO MD Ot Z12.31 12/28/2015 ALEXANDRIA CAN MD Ot I25.10 ATHSCL HEART DISEASE OF [place] CORONARY 12/29/2015 ALEXANDRIA CAN MD Ot I25.10 ATHSCL HEART DISEASE OF [place] CORONARY 01/03/2016 ALEXANDRIA CAN MD Ot E78.2 MIXED HYPERLIPIDEMIA 01/03/2016 ALEXANDRIA CAN MD Ot I10 ESSENTIAL (PRIMARY) HYPERTENSION 01/03/2016 ALEXANDRIA CAN MD Ot I25.10 ATHSCL HEART DISEASE OF [place] CORONARY 01/03/2016 ALEXANDRIA CAN MD Ot 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 01/28/2016 ALEXANDRIA CAN MD Ot E78.2 MIXED HYPERLIPIDEMIA 01/28/2016 ALEXANDRIA CAN MD Ot I10 ESSENTIAL (PRIMARY) HYPERTENSION 01/28/2016 ALEXANDRIA CAN MD Ot I25.10 ATHSCL HEART DISEASE OF [place] CORONARY 01/28/2016 ALEXANDRIA CAN MD Ot 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 03/01/2016 ALEXANDRIA CAN MD Ot E78.2 MIXED HYPERLIPIDEMIA 03/01/2016 ALEXANDRIA CAN MD Ot I10 ESSENTIAL (PRIMARY) HYPERTENSION 03/01/2016 ALEXANDRIA CAN MD Ot I25.10 ATHSCL HEART DISEASE OF [place] CORONARY 03/01/2016 ALEXANDRIA CAN MD Ot 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 07/22/2016 Ot 272.4 HYPERLIPIDEMIA NEC/NOS 07/22/2016 Ot 401.9 HYPERTENSION NOS 07/22/2016 Ot 433.10 CAROTID ARTERY OCCLUSION W O CEREBRAL IN 07/22/2016 Ot 786.09 RESPIRATORY ABNORM NEC 07/22/2016 Ot 794.39 ABN CARDIOVASC STUDY NEC 07/22/2016 Ot V72.63 PRE- PROCEDURAL LABORATORY EXAMINATION 07/22/2016 Ot V72.81 EXAM-PRE- OPERATIVE CARDIOVASCULAR 07/22/2016 Ot 959.3 ELB/FOREARM/ WRST INJ NOS 07/22/2016 Ot 959.4 HAND INJURY NOS 07/22/2016 Ot E000.8 OTHER EXTERNAL CAUSE STATUS 07/22/2016 Ot E888.9 FALL NOS 07/22/2016 Ot 397.0 TRICUSPID VALVE DISEASE 07/22/2016 Ot 401.9 HYPERTENSION NOS 07/22/2016 Ot 416.8 CHR PULMON HEART DIS NEC 07/22/2016 Ot 424.0 MITRAL VALVE DISORDER 07/22/2016 Ot 429.3 CARDIOMEGALY 07/22/2016 Ot 793.2 NOSP (ABN) FINDINGS ON RADIOLOGICAL OT 07/22/2016 [employer] Ot 272.4 HYPERLIPIDEMIA NEC/NOS 07/22/2016 CHAVEZZAN CHAVARRIAMAR [employer] Ot 401.9 HYPERTENSION NOS 07/22/2016 [employer] Ot 414.00 CORON ATHEROSCLER NOS TYPE VESSEL, NATIV 07/22/2016 NOLA KO MD Ot 709.9 SKIN DISORDER NOS 07/22/2016 MAIKEL PENNINGTON, NOLA Madera Ot V72.63 PRE-PROCEDURAL LABORATORY EXAMINATION 07/22/2016 NOLA KO MD Ot V74.8 SCREEN-BACTERIAL DIS NEC 07/22/2016 NOLA KO MD Ot 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 07/22/2016 NOLA KO MD Ot V72.84 EXAM PRE-OPERATIVE NOS 07/22/2016 TRINY PENNINGTON, GILLIAN Llamas Ot V76.12 OTH SCREEN MAMMO-MALIGN NEOPLASM OF MINDY 07/22/2016 Ot 284.19 OTHER PANCYTOPENIA 07/22/2016 Ot 285.9 ANEMIA NOS 07/22/2016 GILLIAN AGOSTO MD Ot V76.12 OTH SCREEN MAMMO-MALIGN NEOPLASM OF MINDY 07/22/2016 Ot 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 07/22/2016 Ot 401.9 HYPERTENSION NOS 07/22/2016 Ot 433.10 CAROTID ARTERY OCCLUSION W O CEREBRAL IN 07/22/2016 Ot 434.91 CEREBRAL ART OCCLUSION NOS W CEREBRAL IN 07/22/2016 ALEXANDRIA CAN MD Ot 250.00 DIAB SHERMAN WO COMPL, TYPE II OR UNSPEC TY 07/22/2016 ALEXANDRIA CAN MD Ot 270.4 SULPH AMINO-ACID MET DIS 07/22/2016 ALEXANDRIA CAN MD Ot 401.9 HYPERTENSION NOS 07/22/2016 ALEXANDRIA CAN MD Ot 433.10 CAROTID ARTERY OCCLUSION W O CEREBRAL IN 07/22/2016 ALEXANDRIA CAN MD Ot 434.91 CEREBRAL ART OCCLUSION NOS W CEREBRAL IN 07/22/2016 ALEXANDRIA CAN MD Ot 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- 07/22/2016 ALEXANDRIA CAN MD Ot I10 ESSENTIAL (PRIMARY) HYPERTENSION 07/22/2016 ALEXANDRIA CAN MD Ot I25.10 ATHSCL HEART DISEASE OF [place] CORONARY 07/22/2016 ALEXANDRIA CAN MD Ot 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 07/22/2016 GILLIAN AGOSTO MD, Ot Z12.31 ENCNTR SCREEN MAMMOGRAM FOR MALIGNANT NE 07/22/2016 ALEXANDRIA CAN MD Ot E78.2 MIXED HYPERLIPIDEMIA 07/22/2016 ALEXANDRIA CAN MD Ot I10 ESSENTIAL (PRIMARY) HYPERTENSION 07/22/2016 ALEXANDRIA CAN MD Ot I25.10 ATHSCL HEART DISEASE OF [place] CORONARY 07/22/2016 ALEXANDRIA CAN MD Ot 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 07/22/2016 GILLIAN AGOSTO MD Ot Z12.31 ENCNTR SCREEN MAMMOGRAM FOR MALIGNANT NE 07/22/2016 GILLIAN AGOSTO MD, Ot Z12.31 ENCNTR SCREEN MAMMOGRAM FOR MALIGNANT NE 07/25/2016 GILLIAN AGOSTO MD Ot Z12.31 ENCNTR SCREEN MAMMOGRAM FOR MALIGNANT NE 08/15/2016 GILLIAN AGOSTO MD Ot Z12.31 ENCNTR SCREEN MAMMOGRAM FOR MALIGNANT NE 08/18/2016 GILLIAN AGOSTO MD Ot Z12.31 ENCNTR SCREEN MAMMOGRAM FOR MALIGNANT NE 07/05/2017 RUBI PATEL [employer]ER Ot Z12.31 ENCNTR SCREEN MAMMOGRAM FOR MALIGNANT NE 07/11/2017 RUBI PATEL COMMERCIAL LOAN COLLECTION OFFICER Ot Z12.31 ENCNTR SCREEN MAMMOGRAM FOR MALIGNANT NE 07/12/2017 RUBI PATEL COMMERCIAL LOAN COLLECTION OFFICER Ot Z12.31 ENCNTR SCREEN MAMMOGRAM FOR MALIGNANT NE 07/17/2017 RUBI PATEL COMMERCIAL LOAN COLLECTION OFFICER Ot Z12.31 ENCNTR SCREEN MAMMOGRAM FOR MALIGNANT NE 07/25/2017 RUBI PATEL COMMERCIAL LOAN COLLECTION OFFICER Ot Z12.31 ENCNTR SCREEN MAMMOGRAM FOR MALIGNANT NE 07/12/2018 GILLIAN AGOSTO MD Ot V76.12 OTH SCREEN MAMMO-MALIGN NEOPLASM OF MINDY 07/12/2018 Ot 284.19 OTHER PANCYTOPENIA 07/12/2018 Ot 285.9 ANEMIA NOS 07/12/2018 GILLIAN AGOSTO MD Ot V76.12 OTH SCREEN MAMMO-MALIGN NEOPLASM OF MINDY 07/12/2018 Ot 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 07/12/2018 Ot 401.9 HYPERTENSION NOS 07/12/2018 Ot 433.10 CAROTID ARTERY OCCLUSION W O CEREBRAL IN 07/12/2018 Ot 434.91 CEREBRAL ART OCCLUSION NOS W CEREBRAL IN 07/12/2018 ALEXANDRIA CAN MD Ot 250.00 DIAB SHERMAN WO COMPL, TYPE II OR UNSPEC TY 07/12/2018 ALEXANDRIA CAN MD Ot 270.4 SULPH AMINO-ACID MET DIS 07/12/2018 ALEXANDRIA CAN MD Ot 401.9 HYPERTENSION NOS 07/12/2018 ALEXANDRIA CAN MD Ot 433.10 CAROTID ARTERY OCCLUSION W O CEREBRAL IN 07/12/2018 ALEXANDRIA CAN MD Ot 434.91 CEREBRAL ART OCCLUSION NOS W CEREBRAL IN 07/12/2018 ALEXANDRIA CAN MD Ot 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- 07/12/2018 ALEXANDRIA CAN MD Ot I10 ESSENTIAL (PRIMARY) HYPERTENSION 07/12/2018 ALEXANDRIA CAN MD Ot I25.10 ATHSCL HEART DISEASE OF [place] CORONARY 07/12/2018 ALEXANDRIA CAN MD Ot 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 07/12/2018 GILLIAN AGOSTO MD Ot Z12.31 ENCNTR SCREEN MAMMOGRAM FOR MALIGNANT NE 07/12/2018 ALEXANDRIA CAN MD Ot E78.2 MIXED HYPERLIPIDEMIA 07/12/2018 ALEXANDRIA CAN MD Ot I10 ESSENTIAL (PRIMARY) HYPERTENSION 07/12/2018 ALEXANDRIA CAN MD Ot I25.10 ATHSCL HEART DISEASE OF [place] CORONARY 07/12/2018 ALEXANDRIA CAN MD Ot 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 07/12/2018 GILLIAN AGOSTO MD Ot Z12.31 ENCNTR SCREEN MAMMOGRAM FOR MALIGNANT NE 07/12/2018 RUBI PATEL APRN Ot Z12.31 ENCNTR SCREEN MAMMOGRAM FOR MALIGNANT NE 07/12/2018 GILLIAN AGOSTO MD Ot Z12.31 ENCNTR SCREEN MAMMOGRAM FOR MALIGNANT NE 07/12/2018 GILLIAN AGOSTO MD Ot Z12.31 ENCNTR SCREEN MAMMOGRAM FOR MALIGNANT NE 07/13/2018 GILLIAN AGOSTO MD Ot Z12.31 ENCNTR SCREEN MAMMOGRAM FOR MALIGNANT NE 07/31/2018 SUNITA COOK MD Ot M54.2 CERVICALGIA 07/31/2018 SUNITA COKO MD Ot S02.2XXA FRACTURE OF NASAL BONES, INIT ENCNTR FOR 07/31/2018 JOEY PENNINGTON, SUNITA [place] Ot S09.90XA UNSPECIFIED INJURY OF HEAD, INITIAL ENCO 07/31/2018 SUNITA COOK MD Ot S80.01XA CONTUSION OF RIGHT KNEE, INITIAL ENCOUNT 07/31/2018 SUNITA COOK MD Ot S80.02XA CONTUSION OF LEFT KNEE, INITIAL ENCOUNTE 07/31/2018 SUNITA COOK MD Ot W18.30XA FALL ON SAME LEVEL, UNSPECIFIED, INITIAL 07/31/2018 SUNITA COOK MD Ot Y92.002 BATHRM OF [facility] NON-INSTITUT RESFORMERLY [facility] SNGL 07/31/2018 SUNITA COOK MD Ot 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 07/31/2018 SUNITA COOK MD Ot Z79.82 FPC (CURRENT) USE OF ASPIRIN 07/31/2018 SUNITA COOK MD Ot Z87.19 PERSONAL HISTORY OF OTHER DISEASES OF TH 07/31/2018 SUNITA COOK MD Ot Z88.2 ALLERGY STATUS TO SULFONAMIDES STATUS 07/31/2018 SUNITA COOK MD Ot Z88.5 ALLERGY STATUS TO NARCOTIC AGENT STATUS 07/31/2018 SUNITA COOK MD Ot Z90.49 ACQUIRED ABSENCE OF OTHER SPECIFIED PART 07/31/2018 SUNITA COOK MD Ot Z90.710 ACQUIRED ABSENCE OF BOTH CERVIX AND UTER 08/01/2018 RUBI PTAEL APRN Ot E66.01 MORBID (SEVERE) OBESITY DUE TO EXCESS CA 08/01/2018 RUBI PATEL COMMERCIAL LOAN COLLECTION OFFICER Ot 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, STAGE 2 08/02/2018 TRINY PENNINGTON, GILLIAN Llamas Ot Z12.31 ENCNTR SCREEN MAMMOGRAM FOR MALIGNANT NE 08/06/2018 RUBI PATEL APRN Ot E66.01 MORBID (SEVERE) OBESITY DUE TO EXCESS CA 08/06/2018 RUBI PATEL APRN Ot 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, STAGE 2 08/15/2018 RUBI PATEL APRN Ot E66.01 MORBID (SEVERE) OBESITY DUE TO EXCESS CA 08/15/2018 RUBI PATEL APRN Ot 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, STAGE 2 08/15/2018 RUBI PATEL APRN Ot E66.01 MORBID (SEVERE) OBESITY DUE TO EXCESS CA 08/15/2018 RUBI PATEL APRN Ot 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, STAGE 2 Procedures Code Description [place] [id number] PSYCH PHARM MGMT 04/23/2012 16209 PSYCH PHARM MGMT 05/18/2012 Results Test Result Range Complete blood count (CBC) with automated white blood cell (WBC) differential - 07/28/18 07:51 Blood leukocytes automated count (number/volume) 8.4 10*3/uL 4.3-11.0 Blood erythrocytes automated count (number/volume) 3.87 10*6/uL 4.35-5.85 Venous blood hemoglobin measurement (mass/volume) 12.2 g/dL 11.5-16.0 Blood hematocrit (volume fraction) 39 % 35-52 Automated erythrocyte mean corpuscular volume 101 [foz_us] 80-99 Automated erythrocyte mean corpuscular hemoglobin (mass per erythrocyte) 32 pg 25-34 Automated erythrocyte mean corpuscular hemoglobin concentration measurement ( mass/volume) 31 g/dL 32-36 Automated erythrocyte distribution width ratio 12.5 % 10.0-14.5 Automated blood platelet count (count/volume) 142 10*3/uL 130-400 Automated blood platelet mean volume measurement 10.8 [foz_us] 7.4-10.4 Automated blood neutrophils/100 leukocytes 91 % 42-75 Automated blood lymphocytes/100 leukocytes 4 % 12-44 Blood monocytes/100 leukocytes 5 % 0-12 Automated blood eosinophils/100 leukocytes 0 % 0-10 Automated blood basophils/100 leukocytes 0 % 0-10 Blood neutrophils automated count (number/volume) 7.7 10*3 1.8-7.8 Blood lymphocytes automated count (number/volume) 0.4 10*3 1.0-4.0 Blood monocytes automated count (number/volume) 0.4 10*3 0.0-1.0 Automated eosinophil count 0.0 10*3/uL 0.0-0.3 Automated blood basophil count (count/volume) 0.0 10*3/uL 0.0-0.1 Comprehensive metabolic panel - 07/28/18 07:51 Serum or plasma sodium measurement (moles/volume) 141 mmol/L 135-145 Serum or plasma potassium measurement (moles/volume) 4.6 mmol/L 3.6-5.0 Serum or plasma chloride measurement (moles/volume) 110 mmol/L 98-107 Carbon dioxide 21 mmol/L 21-32 Serum or plasma anion gap determination (moles/volume) 10 mmol/L 5-14 Serum or plasma urea nitrogen measurement (mass/volume) 32 mg/dL 7-18 Serum or plasma creatinine measurement (mass/volume) 1.11 mg/dL 0.60-1.30 Serum or plasma urea nitrogen/creatinine mass ratio 29 NRG Serum or plasma creatinine measurement with calculation of estimated glomerular filtration rate 48 NRG Serum or plasma glucose measurement (mass/volume) 169 mg/dL 70-105 Serum or plasma calcium measurement (mass/volume) 8.9 mg/dL 8.5-10.1 Serum or plasma total bilirubin measurement (mass/volume) 0.5 mg/dL 0.1-1.0 Serum or plasma alkaline phosphatase measurement (enzymatic activity/volume) 70 U/L 40-136 Serum or plasma aspartate aminotransferase measurement (enzymatic activity/ volume) 19 U/L 5-34 Serum or plasma alanine aminotransferase measurement (enzymatic activity/volume ) 11 U/L 0-55 Serum or plasma protein measurement (mass/volume) 6.6 g/dL 6.4-8.2 Serum or plasma albumin measurement (mass/volume) 3.7 g/dL 3.2-4.5 CALCIUM CORRECTED 9.1 mg/dL 8.5-10.1 Blood manual differential performed detection - 07/28/18 07:51 Blood monocytes/100 leukocytes 2 % NRG Manual blood segmented neutrophils/100 leukocytes 92 % NRG Manual blood lymphocytes/100 leukocytes 5 % NRG Manual eosinophils/100 leukocytes in nose 1 % NRG Blood macrocytes detection by light microscopy SLIGHT NRG Blood erythrocyte morphology finding identification NORMAL NR Complete urinalysis with reflex to culture - 07/28/18 09:20 Urine color determination YELLOW NRG Urine clarity determination CLEAR NRG Urine pH measurement by test strip 6 5-9 Specific gravity of urine by test strip 1.015 1.016- 1.022 Urine protein assay by test strip, semi-quantitative NEGATIVE NEGATIVE Urine glucose detection by automated test strip NEGATIVE NEGATIVE Erythrocytes detection in urine sediment by light microscopy 1+ NEGATIVE Urine ketones detection by automated test strip NEGATIVE NEGATIVE Urine nitrite detection by test strip NEGATIVE NEGATIVE Urine total bilirubin detection by test strip NEGATIVE NEGATIVE Urine urobilinogen measurement by automated test strip (mass/volume) NORMAL NORMAL Urine leukocyte esterase detection by dipstick NEGATIVE NEGATIVE Automated urine sediment erythrocyte count by microscopy (number/high power field) [HPF] NRG Automated urine sediment leukocyte count by microscopy (number/high power field ) NONE NRG Bacteria detection in urine sediment by light microscopy NEGATIVE NRG Crystals detection in urine sediment by light microscopy NONE NRG Casts detection in urine sediment by light microscopy NONE NRG Mucus detection in urine sediment by light microscopy NEGATIVE NRG Complete urinalysis with reflex to culture NO NRG Bacterial urine culture - 07/28/18 09:20 Bacterial urine culture NG NRG Bacteria identification in isolate by anaerobe culture - 08/07/18 10:06 FREE TEXT EXTERNAL BETA LACTAMASE POSITIVE NRG QUANTITY OF GROWTH . NRG Bacteria identification in isolate by anaerobe culture SEE COMMEN NRG FREE TEXT EXTERNAL 2 ID REPORTED 08/14/18 15:05 NRG Gram stain microscopy - 08/07/18 10:06 Gram stain microscopy No bacteria seen NRG Bacteria identification in wound by culture - 08/07/18 10:06 Bacteria identification in wound by culture [id number] NRG FREE TEXT EXTERNAL NO SUSCEPTIBILITY PERFORMED NRG QUANTITY OF GROWTH Rare NRG FREE TEXT ENTRY 2 LEVOFLOXACIN ASHWIN: <=0.25 (NO INTERP) [facility] Sensitivity Panel - 08/07/18 10:06 Gentamicin susceptibility test by minimum inhibitory concentration S NRG Clindamycin susceptibility test by minimum inhibitory concentration 0.25 NRG Erythromycin susceptibility test by minimum inhibitory concentration 0.5 NRG Trimethoprim/sulfamethoxazole susceptibility test by minimum inhibitoryconcentration = NRG Vancomycin susceptibility test by minimum inhibitory concentration < = NRG Levofloxacin susceptibility test by minimum inhibitory concentration <= NRG Ceftriaxone susceptibility test by minimum inhibitory concentration 0.5 NRG Meropenem susceptibility test by minimum inhibitory concentration S NRG Linezolid susceptibility test by minimum inhibitory concentration < = NRG Penicillin G susceptibility test by minimum inhibitory concentration 0.06 NRG Doxycycline 0.25 NRG [facility] Sensitivity Panel - 08/07/18 10:06 Gentamicin susceptibility test by minimum inhibitory concentration S NRG Clindamycin susceptibility test by minimum inhibitory concentration > NRG Erythromycin susceptibility test by minimum inhibitory concentration > NRG Trimethoprim/sulfamethoxazole susceptibility test by minimum inhibitoryconcentration R NRG Vancomycin susceptibility test by minimum inhibitory concentration < = NRG Linezolid susceptibility test by minimum inhibitory concentration 0.5 NRG Doxycycline 0.25 NRG Encounters ACCT No. Visit Date/Time Discharge Status Pt. Type Provider Facility Loc./Unit Complaint [id number] 08/17/2018 07:28:00 08/17/2018 10:41:00 DIS Emergency SUNITA COOK MD [facility] ER FALL [id number] 08/14/2018 09:13:00 08/14/2018 23:59:59 CLS Outpatient RUBI PATEL APRN [facility] WOUNDCARE [id number] 08/07/2018 09:39:00 08/07/2018 23:59:59 CLS Outpatient RUBI PATEL APRN [facility] WOUNDCARE [id number] 07/31/2018 09:23:00 07/31/2018 23:59:59 CLS Outpatient RUBI PATEL APRN [facility] WOUNDCARE [id number] 07/28/2018 06:52:00 07/28/2018 11:03:00 DIS Outpatient SUNITA COOK MD [facility] ER FALL [id number] 07/12/2018 10:10:00 07/12/2018 23:59:59 CLS Outpatient GILLIAN AGOSTO MD [facility] RAD SCREENING [id number] 07/11/2017 10:28:00 07/11/2017 23:59:59 CLS Outpatient RUBI PATEL APRN [facility] RAD SCREENING [id number] 07/22/2016 09:55:00 07/22/2016 23:59:59 CLS Outpatient GILLIAN AGOSTO MD [facility] RAD SCREENING [id number] 12/28/2015 09:38:00 12/28/2015 23:59:59 CLS Outpatient ALEXANDRIA CAN MD [facility] CARD CAD,CAROTID ARTERY STENOSIS,HTN,MIXED HLP [id number] 07/14/2015 09:56:00 07/14/2015 23:59:59 CLS Outpatient GILLIAN AGOSTO MD [facility] RAD SCREENING [id number] 06/29/2015 08:27:00 06/29/2015 23:59:59 CLS Outpatient ALEXANDRIA CAN MD [facility] CARD CAD,CAROTID ARTERY STENOSIS, HTN [id number] 12/31/2014 12:39:00 12/31/2014 21:08:00 DIS Outpatient ALEXANDRIA CAN MD [facility] CATH ABD STRESS, CAD ,HTN, HLM [id number] 12/10/2014 07:45:00 12/10/2014 23:59:59 CLS Outpatient ALEXANDRIA CAN MD [facility] CARD CVA,DEBBIE [id number] 02/03/2014 10:33:00 02/03/2014 23:59:59 CLS Outpatient GILLIAN AGOSTO MD [facility] RAD SCREENING [id number] 04/25/2013 09:17:00 07/24/2013 00:01:00 DIS Outpatient FRANCISCO SORIANO [facility] ONC LAB [id number] 01/31/2013 08:41:00 01/31/2013 23:59:59 CLS Outpatient GILLIAN AGOSTO MD [facility] RAD SCREENING [id number] 10/08/2012 13:00:00 01/06/2013 00:01:00 DIS Outpatient FRANCISCO SORIANO [facility] ONC LAB [id number] 12/14/2012 06:58:00 12/14/2012 13:15:00 DIS Outpatient NOLA KO MD [facility] SDC BASEL CELL CARCINOMA LEFT UPPER ISLAM [id number] 12/11/2012 07:21:00 12/11/2012 23:59:59 CLS Outpatient NOLA KO MD [facility] PREOP BASEL CELL CARCINOMA LEFT UPPER ISLAM [id number] 11/28/2012 08:11:00 11/28/2012 13:45:00 DIS Outpatient NOLA KO MD [facility] SKIN LESION [id number] 11/26/2012 12:03:00 11/26/2012 23:59:59 CLS Outpatient NOLA KO MD [facility] PREOP SKIN LESION [id number] 10/17/2012 07:56:00 10/17/2012 23:59:59 CLS Outpatient [employer] [facility] RAD CAD,HTN,HLP [id number] 08/15/2014 07:37:00 Document Registration [id number] 07/25/2013 00:00:00 Document Registration [id number] 04/16/2012 12:39:00 Document Registration [id number] 03/22/2012 10:26:00 Document Registration [id number] 03/08/2012 08:49:00 Document Registration [id number] 11/23/2011 11:50:00 Document Registration [id number] 11/08/2011 14:12:00 Document Registration [id number] 10/19/2011 05:33:00 Document Registration [id number] 10/18/2011 09:11:00 Document Registration [id number] 10/17/2011 10:19:00 Document Registration [id number] 05/25/2011 10:22:00 Document Registration [id number] 01/19/2011 08:11:00 Document Registration [id number] 01/17/2011 09:26:00 Document Registration [id number] 01/07/2011 08:56:00 Document Registration [id number] 11/25/2010 07:25:00 Document Registration [id number] 10/05/2010 13:13:00 Document Registration [id number] 09/28/2010 10:07:00 Document Registration [id number] 02/11/2010 14:32:00 Document Registration [id number] 08/15/2014 10:21:00 08/15/2014 23:59:59 CLS Outpatient JAMEL LONGO [id number] 03/06/2014 13:22:00 03/06/2014 23:59:59 CLS Outpatient [employer], FRANCHESKA DESMOND [id number] 12/06/2013 14:33:00 12/06/2013 23:59:59 CLS Outpatient SOLORIO BERTA FRANCHESKA DESMOND [id number] 09/05/2013 13:10:00 09/05/2013 23:59:59 CLS Outpatient SOLORIO BERTA FRANCHESKA DESMOND [id number] 06/07/2013 10:29:00 06/07/2013 23:59:59 CLS Outpatient SOLORIO BERTA FRANCHESKA DESMOND [id number] 03/12/2013 13:22:00 03/12/2013 23:59:59 CLS Outpatient SASHA JAMILAH [id number] 09/10/2012 13:15:00 09/10/2012 23:59:59 CLS Outpatient [id number] 05/24/2012 07:53:00 05/24/2012 23:59:59 CLS Outpatient [id number] 05/14/2012 13:07:00 05/14/2012 23:59:59 CLS Outpatient [id number] 04/13/2012 12:53:00 04/13/2012 23:59:59 CLS Outpatient [id number] 12/31/2014 12:40:44 ACT Document Registration [id number] 05/07/2018 15:20:00 05/07/2018 23:59:59 CLS [facility]
== END 2018-08-17 10:41 | disposition home or self-care (01) ==
LOC: EDUNIT# 07:27 → ER 07:28
DX: S09.90XA Unspecified injury of head, initial encounter (principal); Z88.5 Allergy status to narcotic agent; Z88.2 Allergy status to sulfonamides; Z79.82 Long term (current) use of aspirin; Z79.51 Long term (current) use of inhaled steroids; Z90.710 Acquired absence of both cervix and uterus; Z90.49 Acquired absence of other specified parts of digestive tract; W01.198A Fall on same level from slipping, tripping and stumbling with subsequent striking against other object, initial encounter
CPT/HCPCS: 70450

== ENCOUNTER → 2018-08-21 | Outpatient (CLI) | payer MEDICARE, MEDICAID | LOC: WOUNDCARE 09:21 | PROVIDERS: ATTEND Nurse Practitioner | DX: L89.152 Pressure ulcer of sacral region, stage 2 (principal); E66.01 Morbid (severe) obesity due to excess calories ==

== ENCOUNTER → 2018-08-28 | Outpatient (CLI) | payer MEDICARE, MEDICAID | LOC: WOUNDCARE 09:29 | PROVIDERS: ATTEND Nurse Practitioner | DX: L89.153 Pressure ulcer of sacral region, stage 3 (principal); E66.01 Morbid (severe) obesity due to excess calories | CPT/HCPCS: 11042 ==

== ENCOUNTER → 2018-09-04 | Outpatient (CLI) | payer MEDICARE, MEDICAID ==
--- NOTE | 2018-09-04 11:31 | Diagnostic Imaging Report ---
INDICATION: Sacral ulcer. Three views were obtained. FINDINGS: There are degenerative changes in the lumbar spine. There is some sclerosis in both SI joints. There is no fracture or dislocation. There is no obvious radiographic evidence of osteomyelitis. IMPRESSION: Degenerative changes in the lumbar spine and some sclerosis of the SI joints. No definitive radiographically evidence of osteomyelitis Dictated by: Dictated on workstation # [id number]
== END ==
LOC: RAD 10:12
PROVIDERS: ATTEND Nurse Practitioner
DX: L89.153 Pressure ulcer of sacral region, stage 3 (principal); E66.01 Morbid (severe) obesity due to excess calories; M47.816 Spondylosis without myelopathy or radiculopathy, lumbar region
CPT/HCPCS: 72220

== ENCOUNTER → 2018-09-04 | Outpatient (CLI) | payer MEDICARE, MEDICAID | LOC: WOUNDCARE 09:36 | PROVIDERS: ATTEND Nurse Practitioner | DX: L89.153 Pressure ulcer of sacral region, stage 3 (principal); E66.01 Morbid (severe) obesity due to excess calories | CPT/HCPCS: 99213 ==

== ENCOUNTER → 2018-09-11 | Outpatient (CLI) | payer MEDICARE, MEDICAID | LOC: WOUNDCARE 09:31 | PROVIDERS: ATTEND Nurse Practitioner | DX: L89.153 Pressure ulcer of sacral region, stage 3 (principal); E66.01 Morbid (severe) obesity due to excess calories | CPT/HCPCS: 99212 ==

== ENCOUNTER → 2018-09-18 | Outpatient (CLI) | payer MEDICARE, MEDICAID | LOC: WOUNDCARE 09:40 | PROVIDERS: ATTEND Nurse Practitioner | DX: L89.153 Pressure ulcer of sacral region, stage 3 (principal); E66.01 Morbid (severe) obesity due to excess calories ==

== ENCOUNTER → 2018-09-25 | Outpatient (CLI) | payer MEDICARE, MEDICAID | LOC: WOUNDCARE 09:43 | PROVIDERS: ATTEND Nurse Practitioner | DX: L89.153 Pressure ulcer of sacral region, stage 3 (principal); E66.01 Morbid (severe) obesity due to excess calories | CPT/HCPCS: 87070; 87075; 87077; 87205 ==

== ENCOUNTER → 2018-10-02 | Outpatient (CLI) | payer MEDICARE, MEDICAID | LOC: WOUNDCARE 09:18 | PROVIDERS: ATTEND Nurse Practitioner | DX: L89.153 Pressure ulcer of sacral region, stage 3 (principal); E66.01 Morbid (severe) obesity due to excess calories | CPT/HCPCS: 11042 ==

== ENCOUNTER → 2018-10-09 | Outpatient (CLI) | payer MEDICARE, MEDICAID | LOC: WOUNDCARE 09:18 | PROVIDERS: ATTEND Nurse Practitioner | DX: L89.153 Pressure ulcer of sacral region, stage 3 (principal); E66.01 Morbid (severe) obesity due to excess calories ==

== ENCOUNTER → 2018-10-09 | Outpatient (CLI) | payer MEDICARE, MEDICAID | LOC: WOUNDCARE 08:47 | PROVIDERS: ATTEND Nurse Practitioner | DX: L89.153 Pressure ulcer of sacral region, stage 3 (principal); E66.01 Morbid (severe) obesity due to excess calories | CPT/HCPCS: 11042 ==

== ENCOUNTER → 2018-10-16 | Outpatient (CLI) | payer MEDICARE, MEDICAID | LOC: WOUNDCARE 15:00 | PROVIDERS: ATTEND Surgery | DX: L89.153 Pressure ulcer of sacral region, stage 3 (principal); L92.8 Other granulomatous disorders of the skin and subcutaneous tissue; E66.01 Morbid (severe) obesity due to excess calories; B35.4 Tinea corporis | CPT/HCPCS: 17250 ==

== ENCOUNTER → 2018-10-23 | Outpatient (CLI) | payer MEDICARE, MEDICAID | LOC: WOUNDCARE 09:37 | PROVIDERS: ATTEND Nurse Practitioner | DX: L92.8 Other granulomatous disorders of the skin and subcutaneous tissue (principal); E66.01 Morbid (severe) obesity due to excess calories; L89.153 Pressure ulcer of sacral region, stage 3; B35.4 Tinea corporis | CPT/HCPCS: 99213 ==

== ENCOUNTER → 2018-10-30 | Outpatient (CLI) | payer MEDICARE, MEDICAID | LOC: WOUNDCARE 09:55 | PROVIDERS: ATTEND Nurse Practitioner | DX: L89.153 Pressure ulcer of sacral region, stage 3 (principal); L92.8 Other granulomatous disorders of the skin and subcutaneous tissue; B35.4 Tinea corporis; E66.01 Morbid (severe) obesity due to excess calories | CPT/HCPCS: 99212 ==

== ENCOUNTER → 2018-11-06 | Outpatient (CLI) | payer MEDICARE, MEDICAID | LOC: WOUNDCARE 09:39 | PROVIDERS: ATTEND Nurse Practitioner | DX: L92.8 Other granulomatous disorders of the skin and subcutaneous tissue (principal); E66.01 Morbid (severe) obesity due to excess calories; L89.153 Pressure ulcer of sacral region, stage 3; B35.4 Tinea corporis | CPT/HCPCS: 15275 ==

== ENCOUNTER → 2018-11-27 | Outpatient (CLI) | payer MEDICARE, MEDICAID | LOC: WOUNDCARE 09:21 | PROVIDERS: ATTEND Nurse Practitioner | DX: L92.8 Other granulomatous disorders of the skin and subcutaneous tissue (principal); E66.01 Morbid (severe) obesity due to excess calories; L89.153 Pressure ulcer of sacral region, stage 3; B35.4 Tinea corporis | CPT/HCPCS: 99212 ==

== ENCOUNTER → 2018-12-26 | Outpatient (CLI) | payer MEDICARE, MEDICAID | LOC: WOUNDCARE 08:59 | PROVIDERS: ATTEND Surgery | DX: E11.52 Type 2 diabetes mellitus with diabetic peripheral angiopathy with gangrene (principal); E11.622 Type 2 diabetes mellitus with other skin ulcer; L89.153 Pressure ulcer of sacral region, stage 3; I96 Gangrene, not elsewhere classified; E66.01 Morbid (severe) obesity due to excess calories | CPT/HCPCS: 99212 ==

== ENCOUNTER → 2019-01-08 | Outpatient (CLI) | payer MEDICARE, MEDICAID | LOC: WOUNDCARE 10:12 | PROVIDERS: ATTEND Nurse Practitioner | DX: L89.153 Pressure ulcer of sacral region, stage 3 (principal); E66.01 Morbid (severe) obesity due to excess calories; E11.622 Type 2 diabetes mellitus with other skin ulcer; E11.52 Type 2 diabetes mellitus with diabetic peripheral angiopathy with gangrene; I96 Gangrene, not elsewhere classified; R68.89 Other general symptoms and signs | CPT/HCPCS: 99212 ==

== ENCOUNTER → 2019-01-22 | Outpatient (CLI) | payer MEDICARE, MEDICAID | LOC: WOUNDCARE 10:09 | PROVIDERS: ATTEND Nurse Practitioner | DX: L89.153 Pressure ulcer of sacral region, stage 3 (principal); E66.01 Morbid (severe) obesity due to excess calories; E11.622 Type 2 diabetes mellitus with other skin ulcer; E11.52 Type 2 diabetes mellitus with diabetic peripheral angiopathy with gangrene; I96 Gangrene, not elsewhere classified; R68.89 Other general symptoms and signs | CPT/HCPCS: 99212 ==

== ENCOUNTER → 2019-02-12 | Outpatient (CLI) | payer MEDICARE, MEDICAID | LOC: WOUNDCARE 09:17 | PROVIDERS: ATTEND Nurse Practitioner | DX: E11.622 Type 2 diabetes mellitus with other skin ulcer (principal); E11.52 Type 2 diabetes mellitus with diabetic peripheral angiopathy with gangrene; L89.153 Pressure ulcer of sacral region, stage 3; E66.01 Morbid (severe) obesity due to excess calories; I96 Gangrene, not elsewhere classified; R68.89 Other general symptoms and signs | CPT/HCPCS: 99212 ==

== ENCOUNTER 2019-06-04 12:32 | Emergency (ER) | payer MEDICARE, MEDICAID ==
[~2019-06-04] VITALS: Ht 154 cm; Wt 96.8 kg
[2019-06-04] MEDS ORDERED: NS IV 1000 ML 1,000 ML IV ONE ×3 (12:51→15:30)
[2019-06-04 13:10] LABS: BASOPHILS % (AUTO) 0 % (0-10); EOSINOPHILS # (AUTO) 0.1 10^3/uL (0.0-0.3); EOSINOPHILS % (AUTO) 1 % (0-10); HEMATOCRIT 44 % (35-52); HEMOGLOBIN 12.9 G/DL (11.5-16.0); LYMPHOCYTES # (AUTO) 1.6 X 10^3 (1.0-4.0); LYMPHOCYTES % (AUTO) 21 % (12-44); MEAN CORPUSCULAR HEMOGLOBIN 30 PG (25-34); MEAN CORPUSCULAR HGB CONC 30 G/DL (32-36); MEAN CORPUSCULAR VOLUME 101 FL (80-99); MEAN PLATELET VOLUME 11.9 FL (7.4-10.4); MONOCYTES % (AUTO) 12 % (0-12); NEUTROPHILS # (AUTO) 5.1 X 10^3 (1.8-7.8); NEUTROPHILS % (AUTO) 66 % (42-75); PLATELET COUNT 136 10^3/uL (130-400); WHITE BLOOD COUNT 7.7 10^3/uL (4.3-11.0)
--- NOTE | 2019-06-04 13:18 | Diagnostic Imaging Report ---
INDICATION: Shortness of air. COMPARISON: 07/28/2018. FINDINGS: Mild basilar atelectasis is stable. No pneumothorax. There is likely a small left effusion, unchanged. IMPRESSION: Bibasilar pleural-parenchymal opacities, greater left, are unchanged. Dictated by: Dictated on workstation # [id number]
[2019-06-04 13:23] LABS: PROTHROMBIN TIME PATIENT 13.6 SEC (12.2-14.7)
[2019-06-04 13:31] LABS: ALBUMIN 3.4 GM/DL (3.2-4.5); BILIRUBIN,TOTAL 0.6 MG/DL (0.1-1.0); CALCIUM 10.2 MG/DL (8.5-10.1); CREATININE SERUM 2.47 MG/DL (0.60-1.30); POTASSIUM 4.7 MMOL/L (3.6-5.0); TOTAL PROTEIN 6.1 GM/DL (6.4-8.2)
[2019-06-04] MEDS ORDERED: NS (IVPB) 250 ML ONE (13:59)
[2019-06-04] MEDS ORDERED: NOREPINEPHRINE 4 MG/4 ML (LEVOPHED) AMP IV ONE (13:59)
[2019-06-04] MEDS ORDERED: NOREPINEPHRINE 4 MG in NS (IVPB) 250 ML IV SCH (14:15)
--- NOTE | 2019-06-04 14:26 | ED General ---
General Chief Complaint: Neurological Problems Stated Complaint: SOA Nursing Triage Note: ARRIVED VIA EMSFROM THE [facility]. STAFF REPORTS INCREASED WEAKNESS AND NOT WANTING TO GET UP TO BREAKFAST. ALSO REPORT A SAT IN THE 80'S. ARRIVED WITH A NON REBREATHER ON.. Nursing Sepsis Screen: No Definite Risk Source of Information: Patient, EMS, Jail Records Exam Limitations: No Limitations (INDIA ABEBE MD) History of Present Illness Date Seen by Provider: Jun 04, 2019 Time Seen by Provider: 12:42 Initial Comments This 78-year-old woman presents to the emergency room via EMS from the [facility] with declining condition. She has not been down to the dining real to eat in a couple of days. group home staff have noted shortness of breath. EMS reports oxygen saturation was 82 percent on room air. This improved to 97 percent with high flow oxygen. Patient had a fall 2 days ago and complained of left rib pain. Patient has no head or neck pain at this time. She reports no pain except pain in the right foot which is nontender on exam. She is afebrile but EMS reports warmth to the touch. Fingerstick blood sugar was 104. Patient has a documented DO NOT RESUSCITATE status. (INDIA ABEBE MD) Allergies and Home Medications Allergies Coded Allergies: Codeine (Verified Allergy, Unknown, 04/14/08) Morphine (Verified Allergy, Unknown, 04/14/08) Sulfa (Sulfonamide Antibiotics) (Verified Allergy, Unknown, 04/14/08) Home Medications Acetaminophen 500 Mg Tablet, 1,000 MG PO QID PRN, (Reported) PRN PAIN TAKES 2 TABS EVERY 6 HOURS PRN Aspirin 81 Mg Tabec, 81 MG PO DAILY, (Reported) Docusate Sodium 100 Mg Capsule, 100-200 MG PO BID, (Reported) 1 OR 2 CAPS TWICE DAILY Escitalopram Oxalate 10 Mg Tablet, 10 MG PO DAILY, (Reported) Ezetimibe 10 Mg Tablet, 10 MG PO HS, (Reported) Ferrous Sulfate 325 Mg Tablet, 325 MG PO DAILY, (Reported) Folic Acid 1 Mg Tab, 2 MG PO DAILY, (Reported) TAKES 2 OF THE 1MG TABLETS DAILY Guaifenesin 600 Mg Tab, 600 MG PO BID PRN, (Reported) PRN COUGH AND/ OR CONGESTION Hctz/Lisinopril 1 Tab Tablet, 20-25 MG PO DAILY, (Reported) Hydrocortisone Acetate 1 Ea Supp, 25 MG MO Q8H PRN, (Reported) PRN RECTAL BLEEDING FROM HEMORRHOIDS Ibuprofen 200 Mg Tablet, 800 MG PO Q8H PRN for PAIN, (Reported) Loratadine 10 Mg Tablet, 10 MG PO DAILY, (Reported) Metoprolol Succinate 25 Mg Tab.sr.24h, 25 MG PO DAILY, (Reported) [place]-3 Fatty Acids/Fish Oil 1 Each Capsule, 3,000 MG PO DAILY, (Reported) TAKES 3 CAPS ONCE DAILY Polyethylene Glycol 17 Gm Pack, 17 GM PO DAILY PRN, (Reported) PRN CONSTIPATION Ranitidine Hcl 150 Mg Tablet, 150 MG PO BID, (Reported) Simethicone 80 Mg Tab.chew, 40 MG PO BID, (Reported) Simvastatin 40 Mg Tablet, 40 MG PO DAILY, (Reported) Topiramate 25 Mg Tab, 25 MG PO BID, (Reported) Patient Home Medication List Home Medication List Reviewed: Yes (INDIA ABEBE MD) Review of Systems Review of Systems Constitutional: see HPI EENTM: no symptoms reported Respiratory: see HPI Cardiovascular: no symptoms reported Gastrointestinal: see HPI Genitourinary: no symptoms reported : No Musculoskeletal: see HPI Skin: no symptoms reported Psychiatric/Neurological: See HPI Hematologic/Lymphatic: No Symptoms Reported (INDIA ABEBE MD) Past Pwzkptq-Oueupt-Vkpnio Hx Past Med/Social Hx: Reviewed and Corrections made (INDIA ABEBE MD) Patient Social History Alcohol Use: Denies Use Recreational Drug Use: No Smoking Status: Unknown if Ever Smoked Type Used: Cigarettes 2nd Hand Smoke Exposure: No Recent Foreign Travel: No Contact w/Someone Who Travel: No Recent Infectious Disease Expo: No Recent Hopitalizations: Yes (4 YEARS AGO FOR BLEEDING HEMORRHOIDS) (INDIA ABEBE MD) Immunizations Up To Date Date of Pneumonia Vaccine: Sep 17, 2014 (INDIA ABEBE MD) Past Medical History Surgeries: Yes (HYSTERECTOMY, T&A, APPENDECTOMY, GALL BLADDER, KNEE REPLACEMENT X2) Adenoidectomy, Appendectomy, Gallbladder, Hysterectomy, Joint Replacement, Tonsillectomy Respiratory: No Cardiac: Yes (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 SORIANO, WILL SEE AGAIN IN 6MO) (INDIA ABEBE MD) Physical Exam Vital Signs Vital Signs - First Documented 06/04/19 06/04/19 12:32 13:00 Temp 36.7 Pulse 75 Resp 16 B/P (MAP) 82/43 (56) Pulse Ox 99 O2 Delivery Room Air O2 Flow Rate 15.00 (MAHAMED POWELL APRN) Vital Signs Capillary Refill : Less Than 3 Seconds (INDIA ABEBE MD) Height, Weight, BMI Height: 5'6.00" Weight: 190lbs. oz. 86.418658ge; 40.00 BMI Method:Stated General Appearance: No Apparent Distress, WD/WN HEENT: PERRL/EOMI, Normal ENT Inspection Neck: Normal Inspection, Non Tender Respiratory: Lungs Clear, No Accessory Muscle Use, No Respiratory Distress, Decreased Breath Sounds (on the right) Cardiovascular: Regular Rate, Rhythm, No Edema Gastrointestinal: Normal Bowel Sounds, Non Tender, Soft Extremity: Normal Inspection, Non Tender, No Pedal Edema Neurologic/Psychiatric: Alert, No Motor/Sensory Deficits, Normal Mood/Affect, hemstitcher II-XII Norm as Tested Skin: Normal Color, Warm/Dry (INDIA ABEBE MD) Focused Exam Lactate Level 06/04/19 15:32: Lactic Acid Level 0.43L (MAHAMED POWELL APRN) Lactic Acid Level Laboratory Tests Test 06/04/19 15:32 Lactic Acid Level 0.43 MMOL/L (0.50-2.00) L (MAHAMED POWELL APRN) Procedures/Interventions Lumen: triple Central Line Procedure: betadine prep Position: internal jugular (R) Anesthesia: Lidocaine Volume Anesthetic (ccs): 1 Post Position: sutured, good blood return, position confirmed w/ CXR (MAHAMED POWELL APRN) Progress/Results/Core Measures Suspected Sepsis Recent Fever Within 48 Hours: No Infection Criteria Present: Suspected New Infection New/Unexplained Altered Menta: No Sepsis Screen: No Definite Risk SIRS Temperature: Pulse: 75 Respiratory Rate: 16 Laboratory Tests 06/04/19 12:54: White Blood Count 7.7 Blood Pressure 82 /43 Mean: 56 06/04/19 15:32: Lactic Acid Level 0.43L Laboratory Tests 06/04/19 12:54: Creatinine 2.47H, INR Comment 1.0, Platelet Count 136, Total Bilirubin 0.6 (INDIA ABEBE MD) Results/Orders Lab Results Laboratory Tests Test 06/04/19 12:54 06/04/19 14:24 06/04/19 15:15 06/04/19 15:32 Range/Units White Blood Count 7.7 4.3-11.0 10^3/uL Red Blood Count 4.32 L 4.35-5.85 10^6/uL Hemoglobin 12.9 11.5-16.0 G/DL Hematocrit 44 35-52 % Mean Corpuscular Volume 101 H 80-99 FL Mean Corpuscular Hemoglobin 30 25-34 PG Mean Corpuscular Hemoglobin Concent 30 L 32-36 G/DL Red Cell Distribution Width 15.0 H 10.0-14.5 % Platelet Count 136 130-400 10^3/uL Mean Platelet Volume 11.9 H 7.4-10.4 FL Neutrophils (%) (Auto) 66 42-75 % Lymphocytes (%) (Auto) 21 12-44 % Monocytes (%) (Auto) 12 0-12 % Eosinophils (%) (Auto) 1 0-10 % Basophils (%) (Auto) 0 0-10 % Neutrophils # (Auto) 5.1 1.8-7.8 X 10^3 Lymphocytes # (Auto) 1.6 1.0-4.0 X 10^3 Monocytes # (Auto) 1.0 0.0-1.0 X 10^3 Eosinophils # (Auto) 0.1 0.0-0.3 10^3/uL Basophils # (Auto) 0.0 0.0-0.1 10^3/uL Prothrombin Time 13.6 12.2-14.7 SEC INR Comment 1.0 0.8-1.4 Activated Partial Thromboplast Time 35 24-35 SEC Sodium Level 144 135-145 MMOL/L Potassium Level 4.7 3.6-5.0 MMOL/L Chloride Level 107 98-107 MMOL/L Carbon Dioxide Level 28 21-32 MMOL/L Anion Gap 9 5-14 MMOL/L Blood Urea Nitrogen 51 H 7-18 MG/DL Creatinine 2.47 H 0.60-1.30 MG/DL Estimat Glomerular Filtration Rate 19 BUN/Creatinine Ratio 21 Glucose Level 111 H 70-105 MG/DL Calcium Level 10.2 H 8.5-10.1 MG/DL Corrected Calcium 10.7 H 8.5-10.1 MG/DL Total Bilirubin 0.6 0.1-1.0 MG/DL Aspartate Amino Transf (AST/SGOT) 18 5-34 U/L Alanine Aminotransferase (ALT/SGPT) 19 0-55 U/L Alkaline Phosphatase 61 40-136 U/L C-Reactive Protein High Sensitivity 0.55 H 0.00-0.50 MG/DL B-Type Natriuretic Peptide 137.2 H <100.0 PG/ML Total Protein 6.1 L 6.4-8.2 GM/DL Albumin 3.4 3.2-4.5 GM/DL Glucometer 89 70-110 MG/DL Urine Color YELLOW Urine Clarity CLEAR Urine pH 5.5 5-9 Urine Specific [place] >=1.030 1.016-1.022 Urine Protein NEGATIVE NEGATIVE Urine Glucose (UA) NEGATIVE NEGATIVE Urine Ketones NEGATIVE NEGATIVE Urine Nitrite NEGATIVE NEGATIVE Urine Bilirubin NEGATIVE NEGATIVE Urine Urobilinogen 0.2 < = 1.0 MG/DL Urine Leukocyte Esterase NEGATIVE NEGATIVE Urine RBC (Auto) NEGATIVE NEGATIVE Urine RBC NONE /HPF Urine WBC NONE /HPF Urine Crystals PRESENT H /LPF Urine Amorphous Sediment FEW RANI URATES H /LPF Urine Bacteria TRACE /HPF Urine Casts NONE /LPF Urine Mucus NEGATIVE /LPF Urine Culture Indicated NO Lactic Acid Level 0.43 L 0.50-2.00 MMOL/L Test 06/04/19 16:02 Range/Units Blood Gas Puncture Site RIGHT RADIAL Blood Gas Patient Temperature 96.4 Arterial Blood pH 7.09 *L 7.37-7.43 Arterial Blood Partial Pressure CO2 104 *H 35-45 MMHG Arterial Blood Partial Pressure O2 215 H 79-93 MMHG Arterial Blood HCO3 31 H 23-27 MMOL/L Arterial Blood Total CO2 34.4 H 21.0-31.0 MMOL/L Arterial Blood Oxygen Saturation 99 94-100 % Arterial Blood Base Excess 1.5 -2.5-2.5 MMOL/L Mike Test POSITIVE Blood Gas Ventilator Setting NO Blood Gas Inspired Oxygen 11 L (MAHAMED POWELL APRN) Medications Given in ED Current Medications Medications Dose Ordered Sig/Davide Route Start Time Stop Time Status Last Admin Dose Admin Albuterol/ Ipratropium 3 ml ONCE ONCE INH 06/04/19 16:15 06/04/19 16:16 DC 06/04/19 16:17 3 ML Piperacillin Sod/ Tazobactam Sod 4.5 gm/Sodium Chloride 100 ml @ 200 mls/hr ONCE ONCE IV 06/04/19 15:45 06/04/19 16:14 DC 06/04/19 16:22 200 MLS/HR Sodium Chloride 1,000 ml @ 0 mls/hr Q0M ONCE IV 06/04/19 12:51 06/04/19 12:53 DC 06/04/19 12:59 1,000 MLS/HR Sodium Chloride 1,000 ml @ 0 mls/hr Q0M ONCE IV 06/04/19 15:06 06/04/19 15:08 DC 06/04/19 14:00 0 MLS/HR Sodium Chloride 1,000 ml @ 0 mls/hr Q0M ONCE IV 06/04/19 15:30 06/04/19 15:31 DC 06/04/19 16:22 0 MLS/HR (MAHAMED POWELL APRN) Vital Signs/I&O 06/04/19 06/04/19 06/04/19 12:32 13:00 16:17 Temp 36.7 Pulse 75 70 Resp 16 18 B/P (MAP) 82/43 (56) Pulse Ox 99 98 100 O2 Delivery Room Air Non Rebreather O2 Flow Rate 15.00 85.00 (MAHAMED POWELL APRN) Vital Signs/I&O Capillary Refill : Less Than 3 Seconds (INDIA ABEBE MD) Blood Pressure Mean: 56 POS Progress Note #1: Time: 14:24 Progress Note Patient has developed hypotension. She initially had a blood pressure of 104/54 for EMS. She now has had systolic blood pressures as low as the 60s. She is receiving her second liter of IV fluids. In IJ line was placed by Mahamed Powell APRN. Levophed is also infusing. Patient has had a decrease in mental status since arrival as well. She is responsive to voice but not talking anymore. CT imaging of the head and chest are pending. Progress Note #2: Time: 15:02 Progress Note Initial workup has not revealed a reason for patient's hypotension except possibly hypovolemia. Preliminary review of CT of the chest and CT of the head have not shown any reason for hypertension. She does not appear septic based on her labs and temperature. CT of the abdomen and pelvis is being added to ensure there is no intra-abdominal bleeding causing her hypotension. Progress Note #3: Time: 16:55 Progress Note Patient's workup revealed a significantly elevated PCO2 of 104 on the ABG and a low pH of 7.09. Patient was started on BiPAP and administered a DuoNeb treatment. Patient does not have a history of COPD according to her records. There was some suspicion of pneumonia on imaging studies as well although her lab work would not support a diagnosis of sepsis. Zosyn was started for initial empiric antibiotic therapy. I discussed the situation with patient's brother, Michael Zhang. He requested the patient be transferred to [facility] as [facility] is on ICU diversion. I discussed the case with hospitalist, Dr. Urbina who accepts transfer. Progress Note #4: Time: 19:15 Progress Note Patient's blood pressure began to decline despite receiving 3 L and IV boluses. This was noted just prior to transfer. Levophed drip was restarted for transport. (INDIA ABEBE MD) ECG Initial ECG Impression Date: Jun 04, 2019 Initial ECG Impression Time: 17:40 Initial ECG Rate: 57 Initial ECG Rhythm: Normal Sinus Comment Sinus rhythm with no ST elevation or depression. No abnormal intervals. LVH. (INDIA ABEBE MD) Diagnostic Imaging Diagonstic Imaging: Xray Plain Films/CT/US/NM/MRI: chest Comments Chest x-ray viewed by me and report reviewed. See report below: NAME: FRANCHESKA ZHANG [facility] REC#: [id number] PT STATUS: REG ER : 1940 PHYSICIAN: INDIA ABEBE MD ADMIT DATE: 06/04/19/ER Draft Date of Exam:06/04/19 CHEST 1 VIEW, AP/PA ONLY INDICATION: Shortness of air. COMPARISON: 07/28/2018. FINDINGS: Mild basilar atelectasis is stable. No pneumothorax. There is likely a small left effusion, unchanged. IMPRESSION: Bibasilar pleural-parenchymal opacities, greater left, are unchanged. Dictated on workstation # [id number] Dict: 06/04/19 1306 Trans: 06/04/19 1318 [id number] Interpreted by: STACIE LATIF Diagonstic Imaging: CT Plain Films/CT/US/NM/MRI: chest Comments CT chest viewed by me and report reviewed. See report below: NAME: FRANCHESKA ZHANG [facility] REC#: [id number] PT STATUS: REG ER : 1940 PHYSICIAN: INDIA ABEBE MD ADMIT DATE: 06/04/19/ER Draft Date of Exam:06/04/19 CT CHEST WO PROCEDURE: CT chest without contrast. TECHNIQUE: Multiple contiguous axial images were obtained through the chest without the use of intravenous contrast. Auto Exposure Controls were utilized during the CT exam to meet ALARA standards for radiation dose reduction. INDICATION: Decreased oxygen saturation and unresponsive. COMPARISON: No prior CT chest studies are available for comparison. FINDINGS: No axillary lymphadenopathy is seen. Mediastinal and hilar evaluation is somewhat limited due to absence of intravenous contrast. The heart is enlarged. There are coronary arterial calcifications present. Pulmonary arteries are dilated, perhaps the basis of pulmonary arterial hypertension. Thoracic aorta does not appear to be aneurysmal. No pericardial fluid is detected. There is trace pleural fluid bilaterally. There are minimal infiltrates versus atelectasis in the lingula and bilateral posterior lower lobes. No parenchymal mass is seen. Central airways appear patent. Upper abdomen is unremarkable. IMPRESSION: 1. Cardiomegaly and coronary arterial calcifications. 2. Dilated pulmonary arteries suggestive of pulmonary arterial hypertension. 3. Trace bilateral pleural effusions with minimal bibasilar infiltrates or atelectasis. Dictated on workstation # [id number] Dict: 06/04/19 1513 Trans: 06/04/19 1519 [facility] [id number] Interpreted by: MARIBELL KEARNS MD Diagonstic Imaging: CT Plain Films/CT/US/NM/MRI: c-spine, head Comments CT head and C-spine viewed by me and report reviewed. See report below: NAME: FRANCHESKA ZHANG [facility] REC#: [id number] PT STATUS: REG ER : 1940 PHYSICIAN: INDIA ABEBE MD ADMIT DATE: 06/04/19/ER Draft Date of Exam:06/04/19 CT HEAD/CERVICAL SPINE WO PROCEDURE: CT head and CT cervical spine without contrast. TECHNIQUE: Multiple contiguous axial images were obtained through the brain and cervical spine without the use of intravenous contrast. Sagittal and coronal reformations through the cervical spine were then performed. Auto Exposure Controls were utilized during the CT exam to meet ALARA standards for radiation dose reduction. INDICATION: Unresponsive. COMPARISON: Correlation is made with prior head CT from 08/17/2018. FINDINGS: CT head: Ventricles and sulci are consistent with the patient's age. 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 There is no sulcal effacement or midline shift. No acute intra-axial or extra-axial hemorrhage is detected. Cisterns are patent. Visualized paranasal sinuses are clear. IMPRESSION: Stable noncontrast head CT. No acute intracranial process is detected. CT cervical spine: There is minimal retrolisthesis C5 on C6. Significant degenerative disc disease C5-C6 and C6-C7 levels are noted with disc space narrowing and marginal spurring. No fractures are seen. Prevertebral tissues are within normal limits. Odontoid is intact. IMPRESSION: Cervical spondylosis. No acute bony abnormality is detected. Dictated on workstation # [id number] Dict: 06/04/19 1507 Trans: 06/04/19 1513 [facility] [phone] Interpreted by: MARIBELL KEARNS MD Diagonstic Imaging: Xray Plain Films/CT/US/NM/MRI: chest Comments Chest x-ray for line placement report reviewed. See report below: NAME: FRANCHESKA ZHANG [facility] REC#: [id number] PT STATUS: REG ER : 1940 PHYSICIAN: INDIA ABEBE MD ADMIT DATE: 06/04/19/ER Draft Date of Exam:06/04/19 CHEST 1 VIEW, AP/PA ONLY INDICATION: Central line placement. TIME OF EXAM: 3:02 p.m. COMPARISON: Correlation is made with prior chest earlier the same day. FINDINGS: Right IJ line has tip overlying the SVC. There is no pneumothorax. Heart is enlarged. There is central congestion. Minimal pleural fluid in the left base is again seen. IMPRESSION: Right IJ line placement. No pneumothorax is detected. Dictated on workstation # [id number] Dict: 06/04/19 151 Trans: 06/04/191512 [id number] Interpreted by: MARIBELL KEARNS MD Diagonstic Imaging: CT Plain Films/CT/US/NM/MRI: abdomen, pelvis Comments CT abdomen and pelvis viewed by me and report reviewed. See report below: NAME: FRANCHESKA ZHANG REC#: [id number] PT STATUS: REG ER : 1940 PHYSICIAN: INDIA ABEBE MD ADMIT DATE: 06/04/19/ER Signed Date of Exam:06/04/19 CT ABDOMEN/PELVIS WO PROCEDURE: CT abdomen and pelvis without contrast. TECHNIQUE: Multiple contiguous axial images were obtained through the abdomen and pelvis without the use of intravenous contrast. Auto Exposure Controls were utilized during the CT exam to meet ALARA standards for radiation dose reduction. INDICATION: No history provided. FINDINGS: There are patchy bibasilar infiltrates. There is no evidence for bowel, biliary, or urinary tract obstruction. No ascites, abscess, hematoma, or other fluid collection. There is noninflamed diverticular disease of the colon. The gallbladder is surgically absent. There are extensive atherosclerotic vascular calcifications, chronic. No pneumatosis or free air. The aorta is nonaneurysmal. There is a chronic noninflamed fatty umbilical hernia. The unopacified urinary bladder is unremarkable. The osseous structures are nonacute. IMPRESSION: Patchy bibasilar infiltrates. No acute appearing abdominal/pelvic abnormality. Dictated by: Dictated on workstation # [id number] Dict: 06/04/19 151 Trans: 06/04/191649 [id number] Interpreted by: STACIE LATIF Electronically signed by: STACIE LATIF 06/04/191649 (INDIA ABEBE MD) Departure Impression Primary Impression: Respiratory failure Qualified Codes: J96.01 - Acute respiratory failure with hypoxia; J96.02 - Acute respiratory failure with hypercapnia Additional Impressions: Acute kidney failure Qualified Codes: N17.9 - Acute kidney failure, unspecified Hypovolemia Hypotension Qualified Codes: I95.89 - Other hypotension; E86.1 - Hypovolemia Disposition: 02 XFER SHT-TRM HOSP Condition: Improved Transfer Transfer Reason: Diversion Time Spoke to Accepting Phy: 16:40 Transfer Progress Notes Case reviewed with with Dr. Urbina, hospitalist at [facility], who accepts transfer. Transfer Time: 19:15 Transfer Facility: [facility] Method of Transfer: EMS (INDIA ABEBE MD) Departure-Patient Inst. Referrals: GILLIAN AGOSTO MD (PCP/Family) Primary Care Physician Copy Copies To 1: GILLIAN AGOSTO MD, JOSHUA T MD Jun 04, 2019 14:26 MAHAMED CORNELIUS APRN Jun 04, 2019 18:18 POS
--- NOTE | 2019-06-04 15:13 | Diagnostic Imaging Report ---
PROCEDURE: CT head and CT cervical spine without contrast. TECHNIQUE: Multiple contiguous axial images were obtained through the brain and cervical spine without the use of intravenous contrast. Sagittal and coronal reformations through the cervical spine were then performed. Auto Exposure Controls were utilized during the CT exam to meet ALARA standards for radiation dose reduction. INDICATION: Unresponsive. COMPARISON: Correlation is made with prior head CT from 08/17/2018. FINDINGS: CT head: Ventricles and sulci are consistent with the patient's age. 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 There is no sulcal effacement or midline shift. No acute intra-axial or extra-axial hemorrhage is detected. Cisterns are patent. Visualized paranasal sinuses are clear. IMPRESSION: Stable noncontrast head CT. No acute intracranial process is detected. CT cervical spine: There is minimal retrolisthesis C5 on C6. Significant degenerative disc disease C5-C6 and C6-C7 levels are noted with disc space narrowing and marginal spurring. No fractures are seen. Prevertebral tissues are within normal limits. Odontoid is intact. IMPRESSION: Cervical spondylosis. No acute bony abnormality is detected. Dictated by: Dictated on workstation # [id number]
--- NOTE | 2019-06-04 15:14 | Diagnostic Imaging Report ---
INDICATION: Central line placement. TIME OF EXAM: 3:02 p.m. COMPARISON: Correlation is made with prior chest earlier the same day. FINDINGS: Right IJ line has tip overlying the SVC. There is no pneumothorax. Heart is enlarged. There is central congestion. Minimal pleural fluid in the left base is again seen. IMPRESSION: Right IJ line placement. No pneumothorax is detected. Dictated by: Dictated on workstation # [id number]
--- NOTE | 2019-06-04 15:20 | Diagnostic Imaging Report ---
PROCEDURE: CT chest without contrast. TECHNIQUE: Multiple contiguous axial images were obtained through the chest without the use of intravenous contrast. Auto Exposure Controls were utilized during the CT exam to meet ALARA standards for radiation dose reduction. INDICATION: Decreased oxygen saturation and unresponsive. COMPARISON: No prior CT chest studies are available for comparison. FINDINGS: No axillary lymphadenopathy is seen. Mediastinal and hilar evaluation is somewhat limited due to absence of intravenous contrast. The heart is enlarged. There are coronary arterial calcifications present. Pulmonary arteries are dilated, perhaps the basis of pulmonary arterial hypertension. Thoracic aorta does not appear to be aneurysmal. No pericardial fluid is detected. There is trace pleural fluid bilaterally. There are minimal infiltrates versus atelectasis in the lingula and bilateral posterior lower lobes. No parenchymal mass is seen. Central airways appear patent. Upper abdomen is unremarkable. IMPRESSION: 1. Cardiomegaly and coronary arterial calcifications. 2. Dilated pulmonary arteries suggestive of pulmonary arterial hypertension. 3. Trace bilateral pleural effusions with minimal bibasilar infiltrates or atelectasis. Dictated by: Dictated on workstation # [id number]
--- NOTE | 2019-06-04 15:20 | Diagnostic Imaging Report ---
PROCEDURE: CT abdomen and pelvis without contrast. TECHNIQUE: Multiple contiguous axial images were obtained through the abdomen and pelvis without the use of intravenous contrast. Auto Exposure Controls were utilized during the CT exam to meet ALARA standards for radiation dose reduction. INDICATION: No history provided. FINDINGS: There are patchy bibasilar infiltrates. There is no evidence for bowel, biliary, or urinary tract obstruction. No ascites, abscess, hematoma, or other fluid collection. There is noninflamed diverticular disease of the colon. The gallbladder is surgically absent. There are extensive atherosclerotic vascular calcifications, chronic. No pneumatosis or free air. The aorta is nonaneurysmal. There is a chronic noninflamed fatty umbilical hernia. The unopacified urinary bladder is unremarkable. The osseous structures are nonacute. IMPRESSION: Patchy bibasilar infiltrates. No acute appearing abdominal/pelvic abnormality. Dictated by: Dictated on workstation # [id number]
[2019-06-04] MEDS ORDERED: PIPERACILLIN SODIUM/TAZOBACTAM 4.5 GM in NS (IVPB) 100 ML IV ONE (15:45)
[2019-06-04 16:04] LABS: BILIRUBIN,URINE NEGATIVE (NEGATIVE); CLARITY,URINE CLEAR; COLOR,URINE YELLOW; GLUCOSE, URINE (UA) NEGATIVE (NEGATIVE); KETONES,URINE NEGATIVE (NEGATIVE); LEUKOCYTE ESTERASE ,URINE NEGATIVE (NEGATIVE); NITRITE,URINE NEGATIVE (NEGATIVE); PH,URINE 5.5 (5-9); PROTEIN,URINE NEGATIVE (NEGATIVE)
[2019-06-04 16:08] LABS: ABG BASE EXCESS 1.5 MMOL/L (-2.5-2.5); ABG OXYGEN SATURATION 99 % (94-100); ABG PO2 215 MMHG (79-93); ABG TCO2 34.4 MMOL/L (21.0-31.0)
[2019-06-04 16:10] LABS: ABG PCO2 104 MMHG (35-45); ABG PH 7.09 (7.37-7.43); ALLENS TEST POSITIVE; INSPIRED O2 11 L; PATIENT TEMP 96.4; VENTILATOR NO
[2019-06-04] MEDS ORDERED: RT-ALBUTEROL/IPRATROPIUM 3 ML (DUONEB) VIAL ONE (16:13)
[2019-06-04] MEDS ORDERED: RT-ALBUTEROL/IPRATROPIUM 3 ML (DUONEB) VIAL INH ONE (16:15)
[2019-06-04 16:17] VITALS: BP 102/50
[2019-06-04 16:21] LABS: BACTERIA,URINE TRACE /HPF
[2019-06-04 16:22] LABS: AMORPHOUS SEDIMENT,UR FEW AMOR URATES /LPF
--- NOTE | 2019-06-04 17:55 | NUR ---
ATTEMPTED TO CALL EMS SHIFT CAPTAIN MULTIPLE TIMES, NO ANSWER. DISPATCH CALLED AT THIS TIME.
[2019-06-04 19:15] VITALS: BP 93/49
== END 2019-06-04 19:15 | disposition short-term general hospital (02) ==
LOC: EDUNIT# 12:32 → ER 12:33
DX: J96.00 Acute respiratory failure, unspecified whether with hypoxia or hypercapnia (principal); N17.9 Acute kidney failure, unspecified; I95.9 Hypotension, unspecified; E86.1 Hypovolemia; I10 Essential (primary) hypertension; E11.9 Type 2 diabetes mellitus without complications; Z88.5 Allergy status to narcotic agent; Z88.2 Allergy status to sulfonamides; Z79.82 Long term (current) use of aspirin; Z90.710 Acquired absence of both cervix and uterus; Z90.49 Acquired absence of other specified parts of digestive tract; Z90.89 Acquired absence of other organs
CPT/HCPCS: 36415; 51702; 70450; 71045; 71250; 72125; 74176; 80053; 81000; 82805; 82962; 83605; 83880; 85025; 85610; 85730; 86141; 86850; 86900; 86901; 87040; 93005

== ENCOUNTER 2019-06-14 12:50 | Inpatient (IN) | payer MEDICARE, MEDICAID ==
[~2019-06-14] VITALS: Ht 165 cm; Wt 99.3 kg
[2019-06-14] MEDS ORDERED: methylPREDNISolone 125 MG (Solu-MEDROL) VIAL IV STA (12:59)
[2019-06-14] MEDS ORDERED: RT-ALBUTEROL SULF 2.5 MG/3 ML PRE-MIX VIAL INH STA (12:59)
[2019-06-14] MEDS ORDERED: RT-ALBUTEROL/IPRATROPIUM 3 ML (DUONEB) VIAL INH ONE (13:00)
[2019-06-14] MEDS ORDERED: DEXAMETHASONE 4 MG/ML SDV (DECADRON) IH ONE (13:00)
--- NOTE | 2019-06-14 13:23 | ED Dyspnea ---
General Stated Complaint: SOA Source of Information: Patient (VERY LIMITED HISTORIAN), Half-Way Records History of Present Illness Date Seen by Provider: Jun 14, 2019 Time Seen by Provider: 12:54 Initial Comments PT ARRIVES VIA EMS FROM [facility] C/O SHORTNESS OF BREATH O2 SATS WERE REPORTEDLY 40-70% AT THE PRISON O2 SAT IS 98% ON 4L/NC Allergies and Home Medications Allergies Coded Allergies: Codeine (Verified Allergy, Unknown, 04/14/08) Morphine (Verified Allergy, Unknown, 04/14/08) Sulfa (Sulfonamide Antibiotics) (Verified Allergy, Unknown, 04/14/08) Home Medications Acetaminophen 500 Mg Tablet, 1,000 MG PO QID PRN, (Reported) PRN PAIN TAKES 2 TABS EVERY 6 HOURS PRN Aspirin 81 Mg Tabec, 81 MG PO DAILY, (Reported) Docusate Sodium 100 Mg Capsule, 100-200 MG PO BID, (Reported) 1 OR 2 CAPS TWICE DAILY Escitalopram Oxalate 10 Mg Tablet, 10 MG PO DAILY, (Reported) Ezetimibe 10 Mg Tablet, 10 MG PO HS, (Reported) Ferrous Sulfate 325 Mg Tablet, 325 MG PO DAILY, (Reported) Folic Acid 1 Mg Tab, 2 MG PO DAILY, (Reported) TAKES 2 OF THE 1MG TABLETS DAILY Guaifenesin 600 Mg Tab, 600 MG PO BID PRN, (Reported) PRN COUGH AND/ OR CONGESTION Hctz/Lisinopril 1 Tab Tablet, 20-25 MG PO DAILY, (Reported) Hydrocortisone Acetate 1 Ea Supp, 25 MG WI Q8H PRN, (Reported) PRN RECTAL BLEEDING FROM HEMORRHOIDS Ibuprofen 200 Mg Tablet, 800 MG PO Q8H PRN for PAIN, (Reported) Loratadine 10 Mg Tablet, 10 MG PO DAILY, (Reported) Metoprolol Succinate 25 Mg Tab.sr.24h, 25 MG PO DAILY, (Reported) [place]-3 Fatty Acids/Fish Oil 1 Each Capsule, 3,000 MG PO DAILY, (Reported) TAKES 3 CAPS ONCE DAILY Polyethylene Glycol 17 Gm Pack, 17 GM PO DAILY PRN, (Reported) PRN CONSTIPATION Ranitidine Hcl 150 Mg Tablet, 150 MG PO BID, (Reported) Simethicone 80 Mg Tab.chew, 40 MG PO BID, (Reported) Simvastatin 40 Mg Tablet, 40 MG PO DAILY, (Reported) Topiramate 25 Mg Tab, 25 MG PO BID, (Reported) Past Lxbinyq-Syiumg-Trtqhg Hx Patient Social History Type Used: Cigarettes 2nd Hand Smoke Exposure: No Recent Hopitalizations: Yes (4 YEARS AGO FOR BLEEDING HEMORRHOIDS) Immunizations Up To Date Date of Pneumonia Vaccine: Sep 17, 2014 Past Medical History Surgeries: Yes (HYSTERECTOMY, T&A, APPENDECTOMY, GALL BLADDER, KNEE REPLACEMENT X2) Adenoidectomy, Appendectomy, Gallbladder, Hysterectomy, Joint Replacement, Tonsillectomy Respiratory: No Cardiac: Yes (PT REPORTS "HOLE IN HEART") Hypertension Neurological: No Reproductive Disorders: No Gastrointestinal: No Musculoskeletal: No Endocrine: Yes Diabetes, Non-Insulin dep Cancer: No Psychosocial: No Blood Disorders: Yes (HAS SEEN DR. SORIANO, WILL SEE AGAIN IN 6MO) Physical Exam Vital Signs Capillary Refill : Height, Weight, BMI Height: 5'6.00" Weight: 190lbs. oz. 86.489289la; 40.00 BMI Method:Stated Progress/Results/Core Measures Results/Orders My Orders Orders - DELMI CAZARES DO Ed Iv/Invasive Line Start (06/14/19 12:59) Ekg Tracing (06/14/19 12:59) Catheter(Urinary) Insert & Ass 03,15 (06/14/19 12:59) O2 (06/14/19 12:59) Monitor-Rhythm Ecg Trace Only (06/14/19 12:59) Chest 1 View, Ap/Pa Only (06/14/19 12:59) Arterial Blood Gas (06/14/19 12:59) BNP (06/14/19 12:59) Cbc With Automated Diff (06/14/19 12:59) Comprehensive Metabolic Panel (06/14/19 12:59) Creatine Kinase (06/14/19 12:59) Creatine Kinase Mb (06/14/19 12:59) Lactic Acid Analyzer (06/14/19 12:59) Magnesium (06/14/19 12:59) Protime With Inr (06/14/19 12:59) Partial Thromboplastin Time (06/14/19 12:59) Ua Culture If Indicated (06/14/19 12:59) Blood Culture (06/14/19 12:59) Influenza A And B Antigens (06/14/19 12:59) Myoglobin Serum (06/14/19 12:59) Troponin I (06/14/19 12:59) Methylprednisolone Sod Succ (Solu-Medrol (06/14/19 12:59) Albuterol/Ipra Inhalation Soln (Duoneb I (06/14/19 13:00) Dexamethasone Injection (Decadron Inject (06/14/19 13:00) Rt Request For Service (06/14/19 12:59) Svn Small Volume Nebulizer (06/14/19 12:59) Albuterol Pre-Mix Nebs (Rt) (Proventil (06/14/19 12:59) Svn Small Volume Nebulizer (06/14/19 12:59) Accucheck Stat ONCE (06/14/19 13:07) Accucheck Stat ONCE (06/14/19 13:07) FSBG Bedside Testing Finger Stick Blood Glucose: 157 Blood Glucose Action Taken: physcian notified Departure Impression Condition: Improved Departure-Patient Inst. Referrals: GILLIAN AGOSTO MD (PCP/Family) Primary Care Physician DELMI CAZARES DO Jun 14, 2019 13:23
[2019-06-14 13:44] LABS: ABG BASE EXCESS 9.4 MMOL/L (-2.5-2.5); ABG OXYGEN SATURATION 97 % (94-100); ABG PCO2 59 MMHG (35-45); ABG PH 7.38 (7.37-7.43); ABG PO2 87 MMHG (79-93); ABG TCO2 36.4 MMOL/L (21.0-31.0)
--- NOTE | 2019-06-14 13:44 | Diagnostic Imaging Report ---
INDICATION: Shortness of breath. TECHNIQUE: Single-view chest at 01:31 p.m. CORRELATION STUDY: 06/04/2019. FINDINGS: Right IJ line has been removed. There is limited depth of inspiration. This results in crowding at the lung bases. Definitive consolidating infiltrate is not suggested. Heart size is enlarged. Vasculature is within normal limits. Mediastinum is prominent. IMPRESSION: 1. Limited depth of inspiration results in crowding at the lung bases. Cardiac enlargement without evidence of overt failure. Dictated by: Dictated on workstation # [id number]
[2019-06-14 13:45] LABS: ALLENS TEST YES-POS; INSPIRED O2 4; PATIENT TEMP 37.1; VENTILATOR NO
[2019-06-14 13:46] LABS: BASOPHILS % (AUTO) 0 % (0-10); EOSINOPHILS # (AUTO) 0.1 10^3/uL (0.0-0.3); EOSINOPHILS % (AUTO) 2 % (0-10); HEMATOCRIT 40 % (35-52); HEMOGLOBIN 11.9 G/DL (11.5-16.0); LYMPHOCYTES # (AUTO) 0.6 X 10^3 (1.0-4.0); LYMPHOCYTES % (AUTO) 11 % (12-44); MEAN CORPUSCULAR HEMOGLOBIN 30 PG (25-34); MEAN CORPUSCULAR HGB CONC 30 G/DL (32-36); MEAN CORPUSCULAR VOLUME 101 FL (80-99); MEAN PLATELET VOLUME 11.8 FL (7.4-10.4); MONOCYTES # (AUTO) 0.9 X 10^3 (0.0-1.0); MONOCYTES % (AUTO) 15 % (0-12); NEUTROPHILS # (AUTO) 4.2 X 10^3 (1.8-7.8); NEUTROPHILS % (AUTO) 72 % (42-75); PLATELET COUNT 176 10^3/uL (130-400); RED CELL DISTRIBUTION WIDTH 14.2 % (10.0-14.5); WHITE BLOOD COUNT 5.8 10^3/uL (4.3-11.0)
[2019-06-14 14:04] LABS: INR 0.9 (0.8-1.4); PROTHROMBIN TIME PATIENT 12.8 SEC (12.2-14.7)
[2019-06-14 14:11] LABS: ALBUMIN 3.4 GM/DL (3.2-4.5); BILIRUBIN,TOTAL 0.6 MG/DL (0.1-1.0); CALCIUM 11.6 MG/DL (8.5-10.1); MAGNESIUM 1.2 MG/DL (1.6-2.4); POTASSIUM 4.3 MMOL/L (3.6-5.0); TOTAL PROTEIN 6.8 GM/DL (6.4-8.2)
[2019-06-14 14:20] LABS: CREATINE KINASE MB 2.5 NG/ML (<6.6)
[2019-06-14] MEDS ORDERED: FUROSEMIDE 40 MG/4 ML INJ (LASIX) IVP ONE (14:45)
[2019-06-14 15:29] LABS: BILIRUBIN,URINE NEGATIVE (NEGATIVE); CLARITY,URINE CLEAR; COLOR,URINE YELLOW; GLUCOSE, URINE (UA) NEGATIVE (NEGATIVE); KETONES,URINE NEGATIVE (NEGATIVE); LEUKOCYTE ESTERASE ,URINE NEGATIVE (NEGATIVE); NITRITE,URINE NEGATIVE (NEGATIVE); PH,URINE 8.5 (5-9); PROTEIN,URINE NEGATIVE (NEGATIVE)
[2019-06-14 15:47] LABS: AMORPHOUS SEDIMENT,UR LARGE AMOR PHOSPHATE /LPF; BACTERIA,URINE NEGATIVE /HPF
[2019-06-14] MEDS ORDERED: methylPREDNISolone 125 MG (Solu-MEDROL) VIAL ONE (15:54)
[2019-06-14 16:50] VITALS: BP 141/85
[2019-06-14] MEDS ORDERED: NITROGLYCERIN 0.4 MG SL TABS BTL 25'S SL PRN (17:15)
[2019-06-14] MEDS ORDERED: ONDANSETRON 4 MG/2 ML (SDV) Z0FRAN IV PRN (17:15)
[2019-06-14] MEDS ORDERED: CATHETER FLUSH 10 ML SYR IV PRN (17:15)
[2019-06-14 17:33] VITALS: BP 141/85
[2019-06-14 18:00] VITALS: BP 121/72
--- NOTE | 2019-06-14 18:03 | Consultation-Cardiology ---
HPI-Cardiology Cardiology Consultation: Date of Consultation 06/14/19 Date of Admission Attending Physician Tabby Lauren MD Admitting Physician Brendan Cyr MD Consulting Physician Kathy PATRICIA MD HPI: Time Seen by a Provider: 18:03 Chief Complaint: Shortness of breath, chest pain This is a 78-year-old lady with previous history of hypertension, diabetes, hyperlipidemia, CAD. She presented from [facility] due to respiratory distress. She is a unreliable historian. She complains of shortness of breath and chest pain. However when asked at other times she did not complain of shortness of breath or chest pain. She denies any other cardiac complaints. She is a DNR/DNI. The team spoke to the brother who expressed that he wants his sister to be comfortable. No coronary angiography or surgeries. Review of Systems-Cardiology Review of Systems Constitutional: As described under HPI; No As described under HPI, No no symptoms reported, No chills, No fever, No lightheadedness Eyes: No As described under HPI, No no symptoms reported, No blindness, No blurred vision, No contact lenses, No drainage, No decreased acuity, No foreign body sensation, No pain, No vision change Ears/Nose/Throat: No As described under HPI, No no symptoms reported, No chronic hearing loss, No ear discharge, No ear pain, No nasal drainage, No ulcerations Respiratory: No no symptoms reported; As described under HPI; No As described under HPI, No cough, No orthopnea; shortness of breath; No SOB with excertion Cardiovascular: No no symptoms reported; As described under HPI; No As described under HPI; chest pain; No edema, No irregular heart rate, No lightheadedness, No palpitations Gastrointestinal: No no symptoms reported, No As described under HPI, No abdomen distended, No abdominal pain, No blood streaked bowels, No constipation, No diarrhea, No nausea, No vomiting, No stool coloration changes Genitourinary: No As described under HPI, No burning, No dysuria, No discharge, No frequency, No flank pain, No hematuria, No urgency : Yes : No Skin: No rash, No skin related problems, No ulcerations Psychiatric/Neurological: No anxiety, No depression, No seizure, No focal weakness, No syncope Hematologic: No bleeding abnormalities MJE-Brvqfy-Ucgudr Hx Patient Social History Alcohol Use: Denies Use Recreational Drug Use: No Smoking Status: Former Smoker Type Used: Cigarettes 2nd Hand Smoke Exposure: No Recent Foreign Travel: No Recent Infectious Disease Expo: No Hospitalization with Isolation: Denies Immunizations Up To Date Date of Pneumonia Vaccine: Mar 19, 2019 Date of Influenza Vaccine: Mar 19, 2019 Past Medical History PMH As described under Assessment. Allergies and Home Medications Allergies Coded Allergies: Sulfa (Sulfonamide Antibiotics) (Verified Allergy, Unknown, 04/14/08) codeine (Verified Allergy, Unknown, 04/14/08) morphine (Verified Allergy, Unknown, 04/14/08) Home Medications Acetaminophen 500 Mg Tablet, 1,000 MG PO QID PRN, (Reported) PRN PAIN TAKES 2 TABS EVERY 6 HOURS PRN Aspirin 81 Mg Tabec, 81 MG PO DAILY, (Reported) Docusate Sodium 100 Mg Capsule, 100-200 MG PO BID, (Reported) 1 OR 2 CAPS TWICE DAILY Escitalopram Oxalate 10 Mg Tablet, 10 MG PO DAILY, (Reported) Ezetimibe 10 Mg Tablet, 10 MG PO HS, (Reported) Ferrous Sulfate 325 Mg Tablet, 325 MG PO DAILY, (Reported) Folic Acid 1 Mg Tab, 2 MG PO DAILY, (Reported) TAKES 2 OF THE 1MG TABLETS DAILY Guaifenesin 600 Mg Tab, 600 MG PO BID PRN, (Reported) PRN COUGH AND/ OR CONGESTION Hctz/Lisinopril 1 Tab Tablet, 20-25 MG PO DAILY, (Reported) Hydrocortisone Acetate 1 Ea Supp, 25 MG PA Q8H PRN, (Reported) PRN RECTAL BLEEDING FROM HEMORRHOIDS Ibuprofen 200 Mg Tablet, 800 MG PO Q8H PRN for PAIN, (Reported) Loratadine 10 Mg Tablet, 10 MG PO DAILY, (Reported) Metoprolol Succinate 25 Mg Tab.sr.24h, 25 MG PO DAILY, (Reported) [place]-3 Fatty Acids/Fish Oil 1 Each Capsule, 3,000 MG PO DAILY, (Reported) TAKES 3 CAPS ONCE DAILY Polyethylene Glycol 17 Gm Pack, 17 GM PO DAILY PRN, (Reported) PRN CONSTIPATION Ranitidine Hcl 150 Mg Tablet, 150 MG PO BID, (Reported) Simethicone 80 Mg Tab.chew, 40 MG PO BID, (Reported) Simvastatin 40 Mg Tablet, 40 MG PO DAILY, (Reported) Topiramate 25 Mg Tab, 25 MG PO BID, (Reported) Patient Home Medication List Home Medication List Reviewed: Yes Physical Exam-Cardiology Physical Exam Vital Signs/I&O 06/15/19 06/15/19 06/15/19 06/15/19 04:00 04:00 04:00 07:00 Temp 36.5 Pulse 70 70 Resp 30 B/P (MAP) 115/72 (86) Pulse Ox 99 O2 Delivery Nasal Cannula Nasal Cannula O2 Flow Rate 4.00 4.00 06/15/19 06/15/19 06/15/19 06/15/19 08:00 08:00 08:51 09:00 Temp 36.1 Pulse 83 87 Resp 39 29 B/P (MAP) 146/84 (104) 123/75 (91) Pulse Ox 98 99 O2 Delivery Nasal Cannula Nasal Cannula Nasal Cannula Nasal Cannula O2 Flow Rate 4.00 4.00 4.00 4.00 06/15/19 06/15/19 06/15/19 06/15/19 11:02 11:03 12:00 12:27 Temp 36.3 36.2 Pulse 83 84 86 Resp 18 27 B/P (MAP) 105/62 (76) 104/53 (70) Pulse Ox 98 98 O2 Delivery Nasal Cannula Nasal Cannula Nasal Cannula O2 Flow Rate 4.00 4.00 4.00 06/15/19 00:00 Intake Total 675 ml Output Total 2700 ml Balance -2025 ml Capillary Refill : Less Than 3 Seconds Constitutional: appears stated age, AAO x 3; No apparent distress; well- developed, well-nourished HEENT: PERRL; No discharge; hearing is well preserved, oral hygience is good; No ulceration, No xanthelasmas are seen Neck: No carotid bruit; carotid pulses are 2 + bilaterally Respiratory: chest is bilaterally symmetric, other (decreased air entry bilaterally) Cardiovascular: regular rate-rhythm, S1 and S2 Gastrointestinal: soft, audible bowel sounds; No spleenomegaly Rectal: deferred Extremities: normal range of motion, non-tender, normal inspection, pedal edema; No clubbing, No cyanosis, No significant edema Neurologic/Psychiatric: no motor/sensory deficits, alert, normal mood/affect, power is 5/5 both on sides Skin: normal color; No rash, No ulcerations Data Review Labs Laboratory Tests 06/14/19 15:17: Urine Color YELLOW, Urine Clarity CLEAR, Urine pH 8.5, Urine Specific [place] 1.020, Urine Protein NEGATIVE, Urine Glucose (UA) NEGATIVE, Urine Ketones NEGATIVE, Urine Nitrite NEGATIVE, Urine Bilirubin NEGATIVE, Urine Urobilinogen 0.2, Urine Leukocyte Esterase NEGATIVE, Urine RBC (Auto) NEGATIVE, Urine RBC NONE, Urine WBC NONE, Urine Crystals PRESENTH, Urine Amorphous Sediment LARGE RANI PHOSPHATEH, Urine Bacteria NEGATIVE, Urine Casts NONE, Urine Mucus NEGATIVE, Urine Culture Indicated NO 06/14/19 18:33: Troponin I 0.189H 06/14/19 22:31: Glucometer 347H 06/15/19 02:07: Troponin I 0.176H, White Blood Count 4.5, Red Blood Count 3.68L, Hemoglobin 10.9L, Hematocrit 36, Mean Corpuscular Volume 98, Mean Corpuscular Hemoglobin 30, Mean Corpuscular Hemoglobin Concent 30L, Red Cell Distribution Width 14.0, Platelet Count 184, Mean Platelet Volume 11.7H, Neutrophils (%) (Auto) 93H, Lymphocytes (%) (Auto) 5L, Monocytes (%) (Auto) 2, Eosinophils (%) (Auto) 0, Basophils (%) (Auto) 0, Neutrophils # (Auto) 4.2, Lymphocytes # (Auto) 0.2L, Monocytes # (Auto) 0.1, Eosinophils # (Auto) 0.0, Basophils # (Auto) 0.0, Neutr ophils % (Manual) 95, Lymphocytes % (Manual) 2, Monocytes % (Manual) 1, Band Neutrophils 2, Blood Morphology Comment NORMAL, Sodium Level 137, Potassium Level 4.5, Chloride Level 94L, Carbon Dioxide Level 31, Anion Gap 12, Blood Urea Nitrogen 20H, Creatinine 1.08, Estimat Glomerular Filtration Rate 49, BUN/Creatinine Ratio 19, Glucose Level 298H, Calcium Level 11.6H, Corrected Calcium 12.4H, Phosphorus Level 2.6, Magnesium Level 2.2, Total Bilirubin 0.4, Aspartate Amino Transf (AST/SGOT) 18, Alanine Aminotransferase (ALT/SGPT) 26, Alkaline Phosphatase 67, Total Protein 6.4, Albumin 3.0L 06/15/19 05:40: Glucometer 200H 06/15/19 11:00: Glucometer 160H ECG Impression ECG Initial ECG Rhythm: S.Tach Comment T-wave inversions noted. A/P-Cardiology Assessment/Admission Diagnosis Acute respiratory failure, Acute congestive heart failure, Non-STEMI, Anemia, Parkinson's, DO NOT RESUSCITATE/DO NOT INTUBATE Plan The patient is DO NOT RESUSCITATE/DO NOT INTUBATE. No coronary angiography or surgeries requested by the family. Non-STEMI, we will treat medically with aspirin and Plavix. Acute congestive heart failure, echocardiogram to decide if it is systolic or diastolic. Continue IV Lasix. Continue rest of the outpatient medications for hypertension and hyperlipidemia. Thank you for your consultation. Please call me if you have any questions. Latrice Patricia MD, FACP, FACC, FSCAI, FHRS, CCDS Interventional Cardiology Cardiac Electrophysiology Vascular Medicine and Endovascular Interventions Clinical Quality Measures DVT/VTE Risk/Contraindication: Risk Factor Score Per Nursin RFS Level Per Nursing on Admit: 4+=Very High Kathy PATRICIA MD Jun 14, 2019 18:03
[2019-06-14] MEDS: MAGNESIUM 1 GM/100 ML IVPB 100 ML IV SCH ×4 (18:57→22:27)
[2019-06-14 20:00] VITALS: BP 133/80
[2019-06-14] MEDS ORDERED: FUROSEMIDE 40 MG/4 ML INJ (LASIX) IV SCH (20:00)
[2019-06-14] MEDS: ENOXAPARIN 40 MG/0.4 ML (LOVENOX) SYR SC SCH (21:10)
[2019-06-14] MEDS: CATHETER FLUSH 10 ML SYR IV SCH (21:10)
[2019-06-15] VITALS (8 sets, daily range): BP systolic 100–146; BP diastolic 53–84
[2019-06-15 02:14] LABS: BASOPHILS % (AUTO) 0 % (0-10); EOSINOPHILS % (AUTO) 0 % (0-10); HEMATOCRIT 36 % (35-52); HEMOGLOBIN 10.9 G/DL (11.5-16.0); LYMPHOCYTES # (AUTO) 0.2 X 10^3 (1.0-4.0); LYMPHOCYTES % (AUTO) 5 % (12-44); MEAN CORPUSCULAR HEMOGLOBIN 30 PG (25-34); MEAN CORPUSCULAR HGB CONC 30 G/DL (32-36); MEAN CORPUSCULAR VOLUME 98 FL (80-99); MEAN PLATELET VOLUME 11.7 FL (7.4-10.4); MONOCYTES # (AUTO) 0.1 X 10^3 (0.0-1.0); MONOCYTES % (AUTO) 2 % (0-12); NEUTROPHILS # (AUTO) 4.2 X 10^3 (1.8-7.8); NEUTROPHILS % (AUTO) 93 % (42-75); PLATELET COUNT 184 10^3/uL (130-400); WHITE BLOOD COUNT 4.5 10^3/uL (4.3-11.0)
[2019-06-15 02:32] LABS: BILIRUBIN,TOTAL 0.4 MG/DL (0.1-1.0); CALCIUM 11.6 MG/DL (8.5-10.1); CREATININE SERUM 1.08 MG/DL (0.60-1.30); POTASSIUM 4.5 MMOL/L (3.6-5.0); TOTAL PROTEIN 6.4 GM/DL (6.4-8.2)
[2019-06-15 02:38] LABS: BAND NEUTROPHILS 2 %; LYMPHOCYTES % (MANUAL) 2 %; MONOCYTES % (MANUAL) 1 %; NEUTROPHILS % (MANUAL) 95 %
[2019-06-15 02:39] LABS: RBC MORPH NORMAL
[2019-06-15] MEDS: inSUlin ASPART (NovoLOG) 1 UNIT/0.01 ML (CHARGE PER UNIT) SC SCH ×4 (05:53→20:54)
[2019-06-15] MEDS: CATHETER FLUSH 10 ML SYR IV SCH ×3 (05:53→20:55)
--- NOTE | 2019-06-15 07:22 | Diagnostic Imaging Report ---
INDICATION: CHF. Time of exam: 1:04 AM Correlation is made with prior chest one day earlier. Heart remains enlarged. There is central congestion. There are some mild bibasilar infiltrates or atelectasis, similar to yesterday. Upper lung roldan are clear. No pneumothorax is seen. IMPRESSION: Stable chest since one day earlier. Dictated by: Dictated on workstation # [id number]
--- NOTE | 2019-06-15 07:25 | History & Physical-Hospitalist ---
History of Present Illness HPI/Chief Complaint Neeta Zhang this 70-year-old female with past medical history of hypertension, hyperlipidemia, type II diabetes mellitus, coronary artery disease, cerebrovascular disease, who presented from [facility] with hypoxia. She is a poor historian in her story varies. Upon my examination, she reports shortness of breath. She denies chest pain, but endorses it at other times. She denies any fevers or chills. She denies any abdominal pain, nausea, or vomiting. She denies any diarrhea. She denies any dysuria. The nursing staff called her brother and he expressed that she is a DNR/DNI and that if she was to worsen we should make her comfortable. Source: patient Exam Limitations: clinical condition Date Seen 06/14/19 Time Seen by a Provider: 18:15 Attending Physician Salazar Lauren MD PCP Brendan Cyr MD Referring Physician Date of Admission Jun 14, 2019 at 14:45 Home Medications & Allergies Home Medications Reviewed patient Home Medication Reconciliation performed by pharmacy medication reconciliations locate technician and/or nursing. Patients Allergies have been reviewed. Allergies Allergies Coded Allergies Sulfa (Sulfonamide Antibiotics) (Verified Allergy, Unknown, 04/14/08) codeine (Verified Allergy, Unknown, 04/14/08) morphine (Verified Allergy, Unknown, 04/14/08) Past Ppywgfh-Kvzihy-Phgwwl Hx Past Med/Social Hx: Reviewed Nursing Past Med/Soc Hx Patient Social History Alcohol Use: Denies Use Recreational Drug Use: No Smoking Status: Former Smoker Type Used: Cigarettes 2nd Hand Smoke Exposure: No Recent Foreign Travel: No Contact w/other who traveled: No Recent Hopitalizations: Yes (TRANSFERRED TO [facility] 06/04/19) Recent Infectious Disease Expo: No Immunizations Up To Date Date of Pneumonia Vaccine: Mar 19, 2019 Date of Influenza Vaccine: Mar 19, 2019 Past Medical History Surgeries: Adenoidectomy, Appendectomy, Gallbladder, Hysterectomy, Joint Replacement, Tonsillectomy Cardiac: Hypertension Reproductive: No Endocrine: Diabetes, Non-Insulin dep History of Blood Disorders: Yes (HAS SEEN DR. SORIANO, WILL SEE AGAIN IN 6MO) Review of Systems Constitutional: no symptoms reported, see HPI Physical Exam Physical Exam Vital Signs Vital Signs - First Documented 06/14/19 12:52 Temp 37.1 Pulse 96 Resp 40 B/P (MAP) 140/104 (116) Pulse Ox 99 O2 Delivery Nasal Cannula O2 Flow Rate 4.00 Capillary Refill : Less Than 3 Seconds Height, Weight, BMI Height: 5'6.00" Weight: 190lbs. oz. 86.063032vh; 35.84 BMI Method:Stated General Appearance: No Apparent Distress, WD/WN, Chronically ill, Other (resting tremor) HEENT: PERRL/EOMI, Pharynx Normal Neck: Normal Inspection Respiratory: Lungs Clear, Normal Breath Sounds, No Respiratory Distress Cardiovascular: Regular Rate, Rhythm, No Edema, No Murmur Gastrointestinal: Normal Bowel Sounds, Non Tender, Soft Extremity: Normal Inspection, Pedal Edema Neurologic/Psychiatric: Alert, No Motor/Sensory Deficits, Normal Mood/Affect, Disoriented Skin: Normal Color, Warm/Dry Results Results/Procedures Labs Laboratory Tests 06/14/19 13:35 06/15/19 02:07 Patient resulted labs reviewed. Imaging: Reviewed Imaging Report Assessment/Plan Admission Diagnosis acute respiratory failure with hypoxia Admission Status: Inpatient Order (span 2 midnights) Reason for Inpatient Admission: respiratory failure requiring IV diuresis Assessment and Plan Acute respiratory failure with hypoxia Acute on chronic heart failure with preserved ejection fraction NSTEMI appears euvolemic to hypervolemic on exam BNP elevated at 1189 Chest x-ray with central congestion Started on IV Lasix Troponin elevated at 0.15, continue to trend Cardiology consulted, appreciate recommendations Hypercalcemia mildly elevated, continue to monitor Hypertension Continue lisinopril and metoprolol Hyperlipidemia Continue home meds Coronary artery disease Continue statin and aspirin DVT prophylaxis: Lovenox Diagnosis/Problems Diagnosis/Problems (1) Acute on chronic heart failure with preserved ejection fraction Status: Acute (2) Acute and chronic respiratory failure with hypoxia Status: Acute (3) NSTEMI (non-ST elevation myocardial infarction) Status: Acute (4) Hypercalcemia Status: Acute (5) HTN (hypertension) Status: Chronic Qualifiers: Hypertension type: essential hypertension Qualified Codes: I10 - Essential (primary) hypertension (6) T2DM (type 2 diabetes mellitus) Status: Chronic Qualifiers: Diabetes mellitus extermination supervisor insulin use: without jail use (7) HLD (hyperlipidemia) Status: Chronic (8) CAD (coronary artery disease) Status: Chronic Clinical Quality Measures DVT/VTE Risk/Contraindication: Risk Factor Score Per Nursin RFS Level Per Nursing on Admit: 4+=Very High BRUNO,SALAZAR M MD Jun 15, 2019 07:25
[2019-06-15 07:47] LABS: MAGNESIUM 2.2 MG/DL (1.6-2.4); PHOSPHORUS 2.6 MG/DL (2.3-4.7)
[2019-06-15] MEDS ORDERED: ASPIRIN E.C. 81 MG (ECOTRIN) TAB PO SCH (09:00)
--- NOTE | 2019-06-15 13:10 | Progress Note - Hospitalist ---
Subjective HPI/CC On Admission Date Seen by Provider: Jun 15, 2019 Time Seen by Provider: 08:00 Neeta Zhang this 70-year-old female with past medical history of hypertension, hyperlipidemia, type II diabetes mellitus, coronary artery disease, cerebrovascular disease, who presented from [facility] with hypoxia. She is a poor historian in her story varies. Upon my examination, she reports shortness of breath. She denies chest pain, but endorses it at other times. She denies any fevers or chills. She denies any abdominal pain, nausea, or vomiting. She denies any diarrhea. She denies any dysuria. The nursing staff called her brother and he expressed that she is a DNR/DNI and that if she was to worsen we should make her comfortable. Subjective/Events-last exam she is asleep upon my arrival. She awakens easily. She denies any shortness of breath or chest pain. She denies any abdominal pain, nausea, or vomiting. She denies any fevers or chills. She has no complaints. Focused Exam Lactate Level 06/14/19 13:35: Lactic Acid Level 0.90 Objective Exam Vital Signs Vital Signs Date Time Temp Pulse Resp B/P (MAP) Pulse Ox O2 Delivery O2 Flow Rate FiO2 06/15/19 12:27 86 06/15/19 12:00 36.2 27 104/53 (70) 98 Nasal Cannula 4.00 Capillary Refill : Less Than 3 Seconds General Appearance: No Apparent Distress, WD/WN HEENT: PERRL/EOMI, Pharynx Normal Neck: Normal Inspection, Supple Respiratory: Lungs Clear, Normal Breath Sounds, No Respiratory Distress Cardiovascular: Regular Rate, Rhythm, No Murmur Gastrointestinal: Normal Bowel Sounds, Non Tender, Soft Extremity: Normal Inspection, Pedal Edema Neurologic/Psychiatric: Alert, No Motor/Sensory Deficits, Normal Mood/Affect, Disoriented Skin: Normal Color, Warm/Dry Results/Procedures Lab Laboratory Tests 06/14/19 13:35 06/15/19 02:07 Patient resulted labs reviewed. Imaging: Reviewed Imaging Report Assessment/Plan Assessment and Plan Assess & Plan/Chief Complaint Acute respiratory failure with hypoxia Acute on chronic heart failure with preserved ejection fraction NSTEMI continue diuretics Cardiology following, no plans for aggressive intervention Hypercalcemia check PTH type II diabetes mellitus Sliding scale insulin Hypertension Hyperlipidemia Coronary artery disease Continue home meds DVT prophylaxis: Lovenox Diagnosis/Problems Diagnosis/Problems (1) Acute on chronic heart failure with preserved ejection fraction Status: Acute (2) Acute and chronic respiratory failure with hypoxia Status: Acute (3) NSTEMI (non-ST elevation myocardial infarction) Status: Acute (4) Hypercalcemia Status: Acute (5) HTN (hypertension) Status: Chronic Qualifiers: Hypertension type: essential hypertension Qualified Codes: I10 - Essential (primary) hypertension (6) T2DM (type 2 diabetes mellitus) Status: Chronic Qualifiers: Diabetes mellitus terminal operations manager insulin use: without correction use (7) HLD (hyperlipidemia) Status: Chronic (8) CAD (coronary artery disease) Status: Chronic Clinical Quality Measures DVT/VTE Risk/Contraindication: Risk Factor Score Per Nursin RFS Level Per Nursing on Admit: 4+=Very High SALAZAR CARR MD Jun 15, 2019 13:10
--- NOTE | 2019-06-15 13:56 | Cardiology Progress Note ---
Cardiology SOAP Progress Note Subjective: Some improvement in shortness of breath. No further chest pain. Objective: I&O/Vital Signs 06/15/19 06/15/19 06/15/19 06/15/19 04:00 04:00 04:00 07:00 Temp 36.5 Pulse 70 70 Resp 30 B/P (MAP) 115/72 (86) Pulse Ox 99 O2 Delivery Nasal Cannula Nasal Cannula O2 Flow Rate 4.00 4.00 06/15/19 06/15/19 06/15/19 06/15/19 08:00 08:00 08:51 09:00 Temp 36.1 Pulse 83 87 Resp 39 29 B/P (MAP) 146/84 (104) 123/75 (91) Pulse Ox 98 99 O2 Delivery Nasal Cannula Nasal Cannula Nasal Cannula Nasal Cannula O2 Flow Rate 4.00 4.00 4.00 4.00 06/15/19 06/15/19 06/15/19 06/15/19 11:02 11:03 12:00 12:27 Temp 36.3 36.2 Pulse 83 84 86 Resp 18 27 B/P (MAP) 105/62 (76) 104/53 (70) Pulse Ox 98 98 O2 Delivery Nasal Cannula Nasal Cannula Nasal Cannula O2 Flow Rate 4.00 4.00 4.00 06/15/19 00:00 Intake Total 675 ml Output Total 2700 ml Balance -2025 ml Weight (Pounds): 190 Weight (Calculated Kilograms): 86.341302 Constitutional: appears stated age, AAO x 3; No apparent distress; well- developed, well-nourished Respiratory: chest is bilaterally symmetric, other (decreased air entry bilaterally) Cardiovascular: regular rate-rhythm, S1 and S2 Gastrointestional: soft, audible bowel sounds; No spleenomegaly Extremities: normal range of motion, non-tender, normal inspection, pedal edema; No clubbing, No cyanosis, No significant edema Neurologic/Psychiatric: no motor/sensory deficits, alert, normal mood/affect, power is 5/5 both on sides Skin: normal color; No rash, No ulcerations Results/Procedures: Labs Laboratory Tests 06/14/19 15:17: Urine Color YELLOW, Urine Clarity CLEAR, Urine pH 8.5, Urine Specific [place] 1.020, Urine Protein NEGATIVE, Urine Glucose (UA) NEGATIVE, Urine Ketones NEGATIVE, Urine Nitrite NEGATIVE, Urine Bilirubin NEGATIVE, Urine Urobilinogen 0.2, Urine Leukocyte Esterase NEGATIVE, Urine RBC (Auto) NEGATIVE, Urine RBC NONE, Urine WBC NONE, Urine Crystals PRESENTH, Urine Amorphous Sediment LARGE RANI PHOSPHATEH, Urine Bacteria NEGATIVE, Urine Casts NONE, Urine Mucus NEGATIVE, Urine Culture Indicated NO 06/14/19 18:33: Troponin I 0.189H 06/14/19 22:31: Glucometer 347H 06/15/19 02:07: Troponin I 0.176H, White Blood Count 4.5, Red Blood Count 3.68L, Hemoglobin 10.9L, Hematocrit 36, Mean Corpuscular Volume 98, Mean Corpuscular Hemoglobin 30, Mean Corpuscular Hemoglobin Concent 30L, Red Cell Distribution Width 14.0, Platelet Count 184, Mean Platelet Volume 11.7H, Neutrophils (%) (Auto) 93H, Lymphocytes (%) (Auto) 5L, Monocytes (%) (Auto) 2, Eosinophils (%) (Auto) 0, Basophils (%) (Auto) 0, Neutrophils # (Auto) 4.2, Lymphocytes # (Auto) 0.2L, Monocytes # (Auto) 0.1, Eosinophils # (Auto) 0.0, Basophils # (Auto) 0.0, Neutrophils % (Manual) 95, Lymphocytes % (Manual) 2, Monocytes % (Manual) 1, Band Neutrophils 2, Blood Morphology Comment NORMAL, Sodium Level 137, Potassium Level 4.5, Chloride Level 94L, Carbon Dioxide Level 31, Anion Gap 12, Blood Urea Nitrogen 20H, Creatinine 1.08, Estimat Glomerular Filtration Rate 49, BUN/Creatinine Ratio 19, Glucose Level 298H, Calcium Level 11.6H, Corrected Calcium 12.4H, Phosphorus Level 2.6, Magnesium Level 2.2, Total Bilirubin 0.4, Aspartate Amino Transf (AST/SGOT) 18, Alanine Aminotransferase (ALT/SGPT) 26, Alkaline Phosphatase 67, Total Protein 6.4, Albumin 3.0L 06/15/19 05:40: Glucometer 200H 06/15/19 11:00: Glucometer 160H A/P: Assessment/Dx: Acute respiratory failure, Acute congestive heart failure, Non-STEMI, Anemia, Parkinson's, DO NOT RESUSCITATE/DO NOT INTUBATE Plan: The patient is DO NOT RESUSCITATE/DO NOT INTUBATE. No coronary angiography or surgeries requested by the family. Non-STEMI, we will treat medically with aspirin and Plavix. Acute congestive heart failure, echocardiogram to decide if it is systolic or diastolic. Continue IV Lasix. Continue rest of the outpatient medications for hypertension and hyperlipidemia. Thank you for your consultation. Please call me if you have any questions. Latrice Patricia MD, FACP, FACC, FSCAI, FHRS, CCDS Interventional Cardiology Cardiac Electrophysiology Vascular Medicine and Endovascular Interventions Focused Exam Lactate Level 06/14/19 13:35: Lactic Acid Level 0.90 Kathy PATRICIA MD Jun 15, 2019 13:56
[2019-06-15] MEDS: ENOXAPARIN 40 MG/0.4 ML (LOVENOX) SYR SC SCH (20:54)
[2019-06-15] MEDS: toPIRamate 25 MG (TOPAMAX) TAB PO SCH (20:54)
[2019-06-15] MEDS: FAMOTIDINE 20 MG (PEPCID) TABLET PO SCH (20:54)
[2019-06-15] MEDS: eZETimibe 10 MG (ZETIA) TABLET PO SCH (20:54)
[2019-06-16] VITALS (7 sets, daily range): BP systolic 84–130; BP diastolic 54–77
[2019-06-16 04:27] LABS: CALCIUM 11.6 MG/DL (8.5-10.1); CREATININE SERUM 0.99 MG/DL (0.60-1.30); MAGNESIUM 1.7 MG/DL (1.6-2.4); POTASSIUM 4.3 MMOL/L (3.6-5.0)
[2019-06-16] MEDS: inSUlin ASPART (NovoLOG) 1 UNIT/0.01 ML (CHARGE PER UNIT) SC SCH ×4 (05:21→21:29)
[2019-06-16] MEDS: CATHETER FLUSH 10 ML SYR IV SCH ×3 (05:21→20:13)
[2019-06-16] MEDS: toPIRamate 25 MG (TOPAMAX) TAB PO SCH ×2 (08:34→20:12)
[2019-06-16] MEDS: SIMvastatin 40 MG (ZOCOR) TAB PO SCH (08:34)
[2019-06-16] MEDS: ASPIRIN E.C. 81 MG (ECOTRIN) TAB PO SCH (08:34)
[2019-06-16] MEDS: FAMOTIDINE 20 MG (PEPCID) TABLET PO SCH ×2 (08:34→20:13)
[2019-06-16] MEDS: lisINopril 20 MG (PRINIVIL) TABLET PO SCH (08:34)
[2019-06-16] MEDS ORDERED: FUROSEMIDE 40 MG/4 ML INJ (LASIX) IVP ONE (09:00)
--- NOTE | 2019-06-16 10:20 | Progress Note - Hospitalist ---
Subjective HPI/CC On Admission Date Seen by Provider: Jun 16, 2019 Time Seen by Provider: 08:20 Neeta Zhang this 70-year-old female with past medical history of hypertension, hyperlipidemia, type II diabetes mellitus, coronary artery disease, cerebrovascular disease, who presented from [facility] with hypoxia. She is a poor historian in her story varies. Upon my examination, she reports shortness of breath. She denies chest pain, but endorses it at other times. She denies any fevers or chills. She denies any abdominal pain, nausea, or vomiting. She denies any diarrhea. She denies any dysuria. The nursing staff called her brother and he expressed that she is a DNR/DNI and that if she was to worsen we should make her comfortable. Subjective/Events-last exam She reports feeling well this morning. She has no complaints. She denies any shortness of breath. She denies chest pain. She denies fevers or chills. Her brother is present. Focused Exam Lactate Level 06/14/19 13:35: Lactic Acid Level 0.90 Objective Exam Vital Signs Vital Signs Date Time Temp Pulse Resp B/P (MAP) Pulse Ox O2 Delivery O2 Flow Rate FiO2 06/16/19 09:04 Nasal Cannula 4.00 06/16/19 08:32 96 06/16/19 08:10 71 18 130/77 (94) 06/16/19 07:02 36.0 Capillary Refill : Less Than 3 Seconds General Appearance: No Apparent Distress, WD/WN HEENT: PERRL/EOMI, Pharynx Normal Neck: Normal Inspection, Supple Respiratory: Lungs Clear, Normal Breath Sounds, No Respiratory Distress Cardiovascular: Regular Rate, Rhythm, No Edema, No Murmur Gastrointestinal: Normal Bowel Sounds, Non Tender, Soft Extremity: Normal Inspection, Non Tender, No Pedal Edema Neurologic/Psychiatric: Alert, Oriented x3, No Motor/Sensory Deficits, Normal Mood/Affect Skin: Normal Color, Warm/Dry Results/Procedures Lab Laboratory Tests 06/16/19 02:54 Patient resulted labs reviewed. Imaging: Reviewed Imaging Report Assessment/Plan Assessment and Plan Assess & Plan/Chief Complaint Acute respiratory failure with hypoxia Acute on chronic heart failure with preserved ejection fraction NSTEMI continue diuretics Cardiology following, no plans for aggressive intervention Primary hyperparathyroidism PTH elevated Check vitamin D levels No plans for pharmacologic treatment as she is asymptomatic We'll plan to begin vitamin D supplementation on discharge type II diabetes mellitus Sliding scale insulin Hypertension Hyperlipidemia Coronary artery disease Continue home meds DVT prophylaxis: Lovenox Diagnosis/Problems Diagnosis/Problems (1) Acute on chronic heart failure with preserved ejection fraction Status: Acute (2) Acute and chronic respiratory failure with hypoxia Status: Acute (3) NSTEMI (non-ST elevation myocardial infarction) Status: Acute (4) Hypercalcemia Status: Acute (5) HTN (hypertension) Status: Chronic Qualifiers: Hypertension type: essential hypertension Qualified Codes: I10 - Essential (primary) hypertension (6) T2DM (type 2 diabetes mellitus) Status: Chronic Qualifiers: Diabetes mellitus terminal make up operator insulin use: without intermediate use (7) HLD (hyperlipidemia) Status: Chronic (8) CAD (coronary artery disease) Status: Chronic (9) Primary hyperparathyroidism Status: Chronic Clinical Quality Measures DVT/VTE Risk/Contraindication: Risk Factor Score Per Nursin RFS Level Per Nursing on Admit: 4+=Very High SALAZAR CARR MD Jun 16, 2019 10:20
--- NOTE | 2019-06-16 14:48 | Cardiology Progress Note ---
Cardiology SOAP Progress Note Subjective: Some improvement in shortness of breath. Objective: I&O/Vital Signs 06/16/19 06/16/19 06/16/19 06/16/19 04:00 04:00 07:00 07:02 Temp 36.7 36.0 Pulse 87 73 Resp 24 B/P (MAP) 108/64 (79) Pulse Ox 95 95 O2 Delivery Nasal Cannula Nasal Cannula O2 Flow Rate 4.00 4.00 06/16/19 06/16/19 06/16/19 06/16/19 08:00 08:00 08:10 08:32 Pulse 84 71 Resp 13 18 B/P (MAP) 84/61 (69) 130/77 (94) Pulse Ox 92 96 O2 Delivery Nasal Cannula Nasal Cannula Nasal Cannula O2 Flow Rate 4.00 4.00 4.00 06/16/19 06/16/19 09:04 11:01 Temp 36.4 Pulse 74 Resp 22 B/P (MAP) 119/54 (75) Pulse Ox 95 O2 Delivery Nasal Cannula Nasal Cannula O2 Flow Rate 4.00 4.00 06/16/19 00:00 Intake Total 1450 ml Output Total 875 ml Balance 575 ml Weight (Pounds): 190 Weight (Calculated Kilograms): 86.256413 Constitutional: appears stated age, AAO x 3; No apparent distress; well- developed, well-nourished Respiratory: chest is bilaterally symmetric, other (decreased air entry bilaterally) Cardiovascular: regular rate-rhythm, S1 and S2 Gastrointestional: soft, audible bowel sounds; No spleenomegaly Extremities: normal range of motion, non-tender, normal inspection, pedal edema; No clubbing, No cyanosis, No significant edema Neurologic/Psychiatric: no motor/sensory deficits, alert, normal mood/affect, power is 5/5 both on sides Skin: normal color; No rash, No ulcerations Results/Procedures: Labs Laboratory Tests 06/15/19 15:39: Glucometer 153H 06/15/19 20:30: Glucometer 148H 06/16/19 02:54: Sodium Level 141, Potassium Level 4.3, Chloride Level 97L, Carbon Dioxide Level 32, Anion Gap 12, Blood Urea Nitrogen 32H, Creatinine 0.99, Estimat Glomerular Filtration Rate 54, BUN/Creatinine Ratio 32, Glucose Level 112H, Calcium Level 11.6H, Magnesium Level 1.7 06/16/19 10:38: Glucometer 124H Microbiology 06/14/19 Blood Culture - Preliminary, Resulted No growth A/P: Assessment/Dx: Acute respiratory failure, Acute congestive heart failure, Non-STEMI, Anemia, Parkinson's, DO NOT RESUSCITATE/DO NOT INTUBATE Plan: The patient is DO NOT RESUSCITATE/DO NOT INTUBATE. No coronary angiography or surgeries requested by the family. Non-STEMI, we will treat medically with aspirin and Plavix. Acute congestive heart failure, echocardiogram to decide if it is systolic or diastolic. Continue IV Lasix. Continue rest of the outpatient medications for hypertension and hyperlipidemia. Thank you for your consultation. Please call me if you have any questions. Latrice Patricia MD, FACP, FACC, FSCAI, FHRS, CCDS Interventional Cardiology Cardiac Electrophysiology Vascular Medicine and Endovascular Interventions Focused Exam Lactate Level 06/14/19 13:35: Lactic Acid Level 0.90 Clinical Quality Measures Type of Care: Type of Care: Pallative Care Kathy PATRICIA MD Jun 16, 2019 14:48
[2019-06-16] MEDS: eZETimibe 10 MG (ZETIA) TABLET PO SCH (20:13)
[2019-06-16] MEDS: ENOXAPARIN 40 MG/0.4 ML (LOVENOX) SYR SC SCH (20:13)
[2019-06-17] VITALS (7 sets, daily range): BP systolic 97–112; BP diastolic 55–66
[2019-06-17] MEDS: CATHETER FLUSH 10 ML SYR IV SCH ×3 (06:22→20:54)
[2019-06-17 06:56] LABS: CALCIUM 11.3 MG/DL (8.5-10.1); CREATININE SERUM 1.96 MG/DL (0.60-1.30); POTASSIUM 4.5 MMOL/L (3.6-5.0)
[2019-06-17] MEDS: inSUlin ASPART (NovoLOG) 1 UNIT/0.01 ML (CHARGE PER UNIT) SC SCH ×4 (06:59→21:51)
[2019-06-17] MEDS: toPIRamate 25 MG (TOPAMAX) TAB PO SCH ×2 (09:22→20:53)
[2019-06-17] MEDS: lisINopril 20 MG (PRINIVIL) TABLET PO SCH (09:22)
[2019-06-17] MEDS: SIMvastatin 40 MG (ZOCOR) TAB PO SCH (09:22)
[2019-06-17] MEDS: ASPIRIN E.C. 81 MG (ECOTRIN) TAB PO SCH (09:23)
[2019-06-17] MEDS: FAMOTIDINE 20 MG (PEPCID) TABLET PO SCH (09:23)
[2019-06-17] MEDS ORDERED: TOPI25CA4 PO (13:59)
[2019-06-17] MEDS ORDERED: FERR-84 PO (13:59)
[2019-06-17] MEDS ORDERED: NYST60PO TP (13:59)
[2019-06-17] MEDS ORDERED: EZET10TA49 PO (13:59)
[2019-06-17] MEDS ORDERED: ACET-93 PO (13:59)
[2019-06-17] MEDS ORDERED: MAGN500C15 PO (13:59)
[2019-06-17] MEDS ORDERED: ESCI20TA45 PO (13:59)
[2019-06-17] MEDS ORDERED: LOPE2CAP PO (13:59)
[2019-06-17] MEDS ORDERED: CEFU500T63 PO (13:59)
[2019-06-17] MEDS ORDERED: SIME80TA16 PO (13:59)
[2019-06-17] MEDS ORDERED: FURO-125 PO (13:59)
[2019-06-17] MEDS ORDERED: ALLO100T PO (13:59)
[2019-06-17] MEDS ORDERED: ATOR10TA66 PO (13:59)
[2019-06-17] MEDS ORDERED: LORA10TA7 PO (13:59)
[2019-06-17] MEDS ORDERED: IPRA3AMP31 IH (13:59)
[2019-06-17] MEDS ORDERED: DOXY100C2 PO (14:02)
[2019-06-17] MEDS ORDERED: ASPI-983 PO (14:02)
[2019-06-17] MEDS ORDERED: METO-370 PO (14:02)
[2019-06-17] MEDS ORDERED: PANT40TA2 PO (14:02)
[2019-06-17] MEDS ORDERED: FOLI1TAB24 PO (14:04)
--- NOTE | 2019-06-17 15:54 | Progress Note - Hospitalist ---
Subjective HPI/CC On Admission Date Seen by Provider: Jun 17, 2019 Time Seen by Provider: 15:00 Neeta Zhang this 70-year-old female with past medical history of hypertension, hyperlipidemia, type II diabetes mellitus, coronary artery disease, cerebrovascular disease, who presented from [facility] with hypoxia. She is a poor historian in her story varies. Upon my examination, she reports shortness of breath. She denies chest pain, but endorses it at other times. She denies any fevers or chills. She denies any abdominal pain, nausea, or vomiting. She denies any diarrhea. She denies any dysuria. The nursing staff called her brother and he expressed that she is a DNR/DNI and that if she was to worsen we should make her comfortable. Subjective/Events-last exam Pt reports doing better and her breathing has improved. Seems confused about order of events leading to this admission. Sister at bedside to help fill in the gaps. Objective Exam Vital Signs Vital Signs Date Time Temp Pulse Resp B/P (MAP) Pulse Ox O2 Delivery O2 Flow Rate FiO2 06/17/19 11:52 36.0 62 20 100/56 (71) 100 Nasal Cannula 3.00 Capillary Refill : Less Than 3 SecondsLess Than 3 Seconds General Appearance: No Apparent Distress, Chronically ill Respiratory: Lungs Clear, No Respiratory Distress Cardiovascular: Regular Rate, Rhythm, No Murmur Neurologic/Psychiatric: Alert, Other (oriented to person and place) Results/Procedures Lab Laboratory Tests 06/17/19 06:16 Patient resulted labs reviewed. Imaging: Reviewed Imaging Report Assessment/Plan Assessment and Plan Assess & Plan/Chief Complaint Acute respiratory failure with hypoxia Acute on chronic heart failure with preserved ejection fraction NSTEMI continue diuretics Cardiology following, no plans for aggressive intervention - Family has elected hospice due to dementia and heart failure - Palliative care consulted, appreciate assistance - Likely DC tomorrow to [facility] with Hospice Primary hyperparathyroidism PTH elevated No plans for pharmacologic treatment as she is asymptomatic and they are electing comfort care/hospice type II diabetes mellitus Sliding scale insulin Hypertension Hyperlipidemia Coronary artery disease Continue home meds DVT prophylaxis: Lovenox Diagnosis/Problems Diagnosis/Problems (1) CAD (coronary artery disease) Status: Chronic (2) HLD (hyperlipidemia) Status: Chronic (3) T2DM (type 2 diabetes mellitus) Status: Chronic Qualifiers: Diabetes mellitus watermelon inspector insulin use: without alf use (4) HTN (hypertension) Status: Chronic Qualifiers: Hypertension type: essential hypertension Qualified Codes: I10 - Essential (primary) hypertension (5) Hypercalcemia Status: Acute (6) Acute and chronic respiratory failure with hypoxia Status: Acute (7) Acute on chronic heart failure with preserved ejection fraction Status: Acute (8) Primary hyperparathyroidism Status: Chronic (9) NSTEMI (non-ST elevation myocardial infarction) Status: Acute Clinical Quality Measures DVT/VTE Risk/Contraindication: Risk Factor Score Per Nursin RFS Level Per Nursing on Admit: 4+=Very High WILFRED FERMIN MD Jun 17, 2019 15:54
--- NOTE | 2019-06-17 17:32 | Cardiology Progress Note ---
Cardiology SOAP Progress Note Subjective: Mild shortness of breath. Objective: I&O/Vital Signs 06/17/19 06/17/19 06/17/19 06/17/19 08:04 09:00 11:52 15:49 Temp 36.4 36.0 36.2 Pulse 69 62 73 Resp 18 20 16 B/P (MAP) 112/58 (76) 100/56 (71) 102/66 (78) Pulse Ox 98 100 98 O2 Delivery Nasal Cannula Nasal Cannula Nasal Cannula Nasal Cannula O2 Flow Rate 3.00 3.00 3.00 3.00 06/17/19 00:00 Intake Total 1100 ml Output Total 1425 ml Balance -325 ml Weight (Pounds): 190 Weight (Calculated Kilograms): 86.482871 Constitutional: appears stated age, AAO x 3; No apparent distress; well- developed, well-nourished Respiratory: chest is bilaterally symmetric, other (decreased air entry bilaterally) Cardiovascular: regular rate-rhythm, S1 and S2 Gastrointestional: soft, audible bowel sounds; No spleenomegaly Extremities: normal range of motion, non-tender, normal inspection, pedal edema; No clubbing, No cyanosis, No significant edema Neurologic/Psychiatric: no motor/sensory deficits, alert, normal mood/affect, power is 5/5 both on sides Skin: normal color; No rash, No ulcerations Results/Procedures: Labs Laboratory Tests 06/16/19 21:08: Glucometer 142H 06/17/19 06:16: Sodium Level 140, Potassium Level 4.5, Chloride Level 95L, Carbon Dioxide Level 34H, Anion Gap 11, Blood Urea Nitrogen 47H, Creatinine 1.96H, Estimat Glomerular Filtration Rate 25, BUN/Creatinine Ratio 24, Glucose Level 136H, Calcium Level 11.3H 06/17/19 10:24: Glucometer 140H 06/17/19 16:08: Glucometer 133H Microbiology 06/14/19 Blood Culture - Preliminary, Resulted No growth A/P: Assessment/Dx: Acute respiratory failure, Acute congestive heart failure, Non-STEMI, Anemia, Parkinson's, DO NOT RESUSCITATE/DO NOT INTUBATE Plan: The patient is DO NOT RESUSCITATE/DO NOT INTUBATE. No coronary angiography or surgeries requested by the family. Non-STEMI, we will treat medically with aspirin and Plavix. Acute diastolic congestive heart failure. Continue IV Lasix. Echocardiogram showed normal LV function with mild diastolic dysfunction. Apical akinesis/hypokinesis is noted. Continue rest of the outpatient medications for hypertension and hyperlipidemia. Thank you for your consultation. Please call me if you have any questions. Latrice Patricia MD, FACP, FACC, FSCAI, FHRS, CCDS Interventional Cardiology Cardiac Electrophysiology Vascular Medicine and Endovascular Interventions Clinical Quality Measures Type of Care: Type of Care: Pallative Care Kathy PATRICIA MD Jun 17, 2019 17:32
[2019-06-17] MEDS: eZETimibe 10 MG (ZETIA) TABLET PO SCH (20:53)
[2019-06-17] MEDS ORDERED: ENOXAPARIN 30 MG/0.3 ML (LOVENOX) SYR SC SCH (21:00)
[2019-06-18 03:23] VITALS: BP 108/59
[2019-06-18 05:45] LABS: CALCIUM 10.5 MG/DL (8.5-10.1); CREATININE SERUM 2.05 MG/DL (0.60-1.30); POTASSIUM 4.6 MMOL/L (3.6-5.0)
[2019-06-18] MEDS: CATHETER FLUSH 10 ML SYR IV SCH (06:33)
[2019-06-18] MEDS: inSUlin ASPART (NovoLOG) 1 UNIT/0.01 ML (CHARGE PER UNIT) SC SCH ×2 (06:33→11:37)
[2019-06-18 08:00] VITALS: BP 106/57
[2019-06-18] MEDS ORDERED: FAMOTIDINE 20 MG (PEPCID) TABLET PO SCH (09:00)
[2019-06-18] MEDS: ASPIRIN E.C. 81 MG (ECOTRIN) TAB PO SCH (09:26)
[2019-06-18] MEDS: SIMvastatin 40 MG (ZOCOR) TAB PO SCH (09:29)
[2019-06-18] MEDS: toPIRamate 25 MG (TOPAMAX) TAB PO SCH (09:29)
[2019-06-18] MEDS: lisINopril 20 MG (PRINIVIL) TABLET PO SCH (09:29)
--- NOTE | 2019-06-18 11:01 | Discharge Summary ---
Diagnosis/Chief Complaint Date of Admission Jun 14, 2019 at 14:45 Date of Discharge Discharge Date: Jun 18, 2019 Admission Diagnosis acute respiratory failure with hypoxia Primary Care Brendan Cyr MD Discharge Diagnosis (1) CAD (coronary artery disease) Status: Chronic (2) HLD (hyperlipidemia) Status: Chronic (3) T2DM (type 2 diabetes mellitus) Status: Chronic (4) HTN (hypertension) Status: Chronic (5) Hypercalcemia Status: Acute (6) Acute and chronic respiratory failure with hypoxia Status: Acute (7) Acute on chronic heart failure with preserved ejection fraction Status: Acute (8) Primary hyperparathyroidism Status: Chronic (9) NSTEMI (non-ST elevation myocardial infarction) Status: Acute Discharge Summary Discharge Physical Exam Allergies: Coded Allergies: Sulfa (Sulfonamide Antibiotics) (Verified Allergy, Unknown, 04/14/08) codeine (Verified Allergy, Unknown, 04/14/08) morphine (Verified Allergy, Unknown, 04/14/08) Vitals & I&Os Vital Signs Date Time Temp Pulse Resp B/P (MAP) Pulse Ox O2 Delivery O2 Flow Rate FiO2 06/18/19 08:00 36.4 64 24 106/57 (73) 95 Nasal Cannula 3.00 Hospital Course Labs (last 24 hrs) Laboratory Tests 06/17/19 16:08: Glucometer 133H 06/17/19 21:08: Glucometer 117H 06/18/19 05:00: Sodium Level 140, Potassium Level 4.6, Chloride Level 96L, Carbon Dioxide Level 34H, Anion Gap 10, Blood Urea Nitrogen 59H, Creatinine 2.05H, Estimat Glomerular Filtration Rate 23, BUN/Creatinine Ratio 29, Glucose Level 139H, Calcium Level 10.5H Microbiology 06/14/19 Blood Culture - Preliminary, Resulted No growth Patient resulted labs reviewed. Pending Labs Laboratory Tests 06/18/19 05:00: Sodium Level 140, Potassium Level 4.6, Chloride Level 96, Carbon Dioxide Level 34, Anion Gap 10, Blood Urea Nitrogen 59, Creatinine 2.05, Estimat Glomerular Filtration Rate 23, BUN/Creatinine Ratio 29, Glucose Level 139, Calcium Level 10.5 Imaging: Reviewed Imaging Report Discharge Home Medications: Active Scripts Active Reported Folic Acid 1 Mg Tablet 2 Mg PO DAILY TAKES 2 (1MG) TABS DAILY Doxycycline Hyclate 100 Mg Capsule 100 Mg PO BID Protonix (Pantoprazole Sodium) 40 Mg Tablet.dr 40 Mg PO DAILY Metoprolol Succinate 50 Mg Tab.er.24h 50 Mg PO DAILY HOLD AND NOTIFY PCP IS BP LESS THAN 100 OR DIASTOLIC LES THAN 60 Aspirin EC (Aspirin) 81 Mg Tablet.dr 81 Mg PO DAILY Magnesium (Magnesium Oxide) 500 Mg Capsule 500 Mg PO DAILY Lasix (Furosemide) 20 Mg Tablet 20 Mg PO DAILY Iprat-Albut 0.5-3(2.5) mg/3 ml (Ipratropium/Albuterol Sulfate) 3 Ml Ampul.neb 3 Ml IH Q12H PRN Cefuroxime (Cefuroxime Axetil) 500 Mg Tablet 500 Mg PO BID Nystop (Nystatin) 60 Gm Powder 1 Applic TP BID PRN Atorvastatin Calcium 10 Mg Tablet 10 Mg PO DAILY Allopurinol 100 Mg Tablet 100 Mg PO DAILY Loperamide (Loperamide HCl) 2 Mg Capsule 2 Mg PO PRN PRN MDD 4 IN 24 HOURS Simethicone 80 Mg Tab.chew 40 Mg PO BID Iron (Ferrous Sulfate) 325 Mg Tablet 325 Mg PO DAILY Topiramate 25 Mg Cap.sprink 25 Mg PO BID Acetaminophen 500 Mg Tablet 500 Mg PO Q8H PRN Ezetimibe 10 Mg Tablet 10 Mg PO DAILY Loratadine 10 Mg Tablet 10 Mg PO DAILY Escitalopram Oxalate 20 Mg Tablet 20 Mg PO DAILY Instructions to patient/family Please see electronic discharge instructions given to patient. Clinical Quality Measures DVT/VTE Risk/Contraindication: Risk Factor Score Per Nursin RFS Level Per Nursing on Admit: 4+=Very High Problem Qualifiers (1) T2DM (type 2 diabetes mellitus): Diabetes mellitus local company intermodal truck driver insulin use: without local company intermodal truck driver use (2) HTN (hypertension): Hypertension type: essential hypertension Qualified Codes: I10 - Essential (primary) hypertension WILFRED FERMIN MD Jun 18, 2019 11:01
[2019-06-18 12:00] VITALS: BP 103/51
[2019-06-18 14:24] VITALS: BP 103/51
--- NOTE | 2019-06-18 16:12 | Cardiology Progress Note ---
Cardiology SOAP Progress Note Subjective: Significant improvement in shortness of breath since admission. Objective: I&O/Vital Signs 06/18/19 06/18/19 06/18/19 06/18/19 08:00 08:00 12:00 14:24 Temp 36.4 36.0 36.0 Pulse 64 62 62 Resp 24 24 24 B/P (MAP) 106/57 (73) 103/51 (68) 103/51 Pulse Ox 95 96 96 O2 Delivery Nasal Cannula Nasal Cannula Nasal Cannula Nasal Cannula O2 Flow Rate 3.00 3.00 3.00 3.00 06/18/19 00:00 Intake Total 910 ml Output Total 350 ml Balance 560 ml Weight (Pounds): 190 Weight (Calculated Kilograms): 86.636602 Constitutional: appears stated age, AAO x 3; No apparent distress; well- developed, well-nourished Respiratory: chest is bilaterally symmetric, other (decreased air entry bilaterally) Cardiovascular: regular rate-rhythm, S1 and S2 Gastrointestional: soft, audible bowel sounds; No spleenomegaly Extremities: normal range of motion, non-tender, normal inspection, pedal edema; No clubbing, No cyanosis, No significant edema Neurologic/Psychiatric: no motor/sensory deficits, alert, normal mood/affect, power is 5/5 both on sides Skin: normal color; No rash, No ulcerations Results/Procedures: Labs Laboratory Tests 06/17/19 21:08: Glucometer 117H 06/18/19 05:00: Sodium Level 140, Potassium Level 4.6, Chloride Level 96L, Carbon Dioxide Level 34H, Anion Gap 10, Blood Urea Nitrogen 59H, Creatinine 2.05H, Estimat Glomerular Filtration Rate 23, BUN/Creatinine Ratio 29, Glucose Level 139H, Calcium Level 10.5H 06/18/19 11:29: Glucometer 154H Microbiology 06/14/19 Blood Culture - Preliminary, Resulted No growth A/P: Assessment/Dx: Acute respiratory failure, Acute congestive heart failure, Non-STEMI, Anemia, Parkinson's, DO NOT RESUSCITATE/DO NOT INTUBATE Plan: The patient is DO NOT RESUSCITATE/DO NOT INTUBATE. No coronary angiography or surgeries requested by the family. Non-STEMI, we will treat medically with aspirin and Plavix. Acute diastolic congestive heart failure. Continue IV Lasix. Echocardiogram showed normal LV function with mild diastolic dysfunction. Apical akinesis/hypokinesis is noted. Continue rest of the outpatient medications for hypertension and hyperlipidemia. Thank you for your consultation. Please call me if you have any questions. Latrice Patricia MD, FACP, FACC, FSCAI, FHRS, CCDS Interventional Cardiology Cardiac Electrophysiology Vascular Medicine and Endovascular Interventions Clinical Quality Measures Type of Care: Type of Care: Pallative Care Kathy PATRICIA MD Jun 18, 2019 16:12
== END 2019-06-18 14:54 | disposition hospice, home (50) | DRG 280 ==
LOC: EDUNIT# 12:50 → ER 12:51 → ICU 14:45 → 4TH 06-16 10:55
PROVIDERS: ADMIT Internal Medicine; ATTEND Internal Medicine
DX: I21.4 Non-ST elevation (NSTEMI) myocardial infarction (principal); I50.33 Acute on chronic diastolic (congestive) heart failure; J96.21 Acute and chronic respiratory failure with hypoxia; I11.0 Hypertensive heart disease with heart failure; E21.0 Primary hyperparathyroidism; G20 Parkinson's disease; E11.9 Type 2 diabetes mellitus without complications; I25.10 Atherosclerotic heart disease of native coronary artery without angina pectoris; Z66 Do not resuscitate; E78.5 Hyperlipidemia, unspecified; E83.52 Hypercalcemia; D64.9 Anemia, unspecified; Z90.710 Acquired absence of both cervix and uterus; Z90.49 Acquired absence of other specified parts of digestive tract; Z90.89 Acquired absence of other organs; Z87.891 Personal history of nicotine dependence; Z79.82 Long term (current) use of aspirin
CPT/HCPCS: 36415; 36600; 51702; 71045; 80048; 80053; 81000; 82306; 82550; 82553; 82805; 82962; 83605; 83735; 83874; 83880; 83970; 84100; 84484; 85007; 85025; 85027; 85610; 85730; 87040; 93005; 93041; 93306; 94640; 94644; 96374; 96375

== ENCOUNTER → 2021-03-18 | Outpatient (CLI) | payer MEDICARE, MEDICAID ==
[~2021-03-18] MED LIST changes: +ACET-93 PO; +ALLO100T PO; +ASPI-1238 PO; +ATOR10TA66 PO; +CEFU500T63 PO; +DOXY100C5 PO; +ESCI20TA39 PO; +EZET10TA49 PO; +FERR-84 PO; +FOLI1TAB33 PO; +FURO-125 PO; +IPRA3AMP31 IH; +LOPE2CAP PO; +MAGN500C15 PO; +METO50TA7 PO; +NYST60PO TP; +PANT40TA2 PO; +SIME80TA16 PO; +TOPI25CA4 PO
[2021-03-18 21:06] LABS: BILIRUBIN,URINE NEGATIVE (NEGATIVE); CLARITY,URINE SL CLOUDY; COLOR,URINE YELLOW; GLUCOSE, URINE (UA) NEGATIVE (NEGATIVE); KETONES,URINE NEGATIVE (NEGATIVE); LEUKOCYTE ESTERASE ,URINE NEGATIVE (NEGATIVE); NITRITE,URINE NEGATIVE (NEGATIVE); PH,URINE 5.5 (5-9); PROTEIN,URINE NEGATIVE (NEGATIVE)
[2021-03-18 21:19] LABS: BACTERIA,URINE NEGATIVE /HPF; SQUAMOUS EPITHELIAL CELL,UR 0-2 /HPF; WBC,URINE 0-2 /HPF
== END ==
LOC: LAB 20:58
PROVIDERS: ATTEND Internal Medicine
DX: N39.0 Urinary tract infection, site not specified (principal)
CPT/HCPCS: 81000